=== PATIENT | female | born 1985 | race Two or more races ===

== ENCOUNTER 2018-08-12 18:09 | Inpatient (IN) | payer OTHER ==
[2018-08-12] MEDS ORDERED: methylPREDNISolone NA SUCC 125 MG/2 ML VIAL IVPUSH ONE (18:12)
--- NOTE | 2018-08-12 18:12 | PDOC ---
Rapid Medical Evaluation Time Seen by Provider: 08/12/18 18:11 Medical Evaluation: Allergies Allergy/AdvReac Type Severity Reaction Status Date / Time No Known Allergies Allergy Verified 07/05/15 11:00 08/12/18 18:11 I have performed a brief in-person evaluation of this patient. The patient presents with a chief complaint of: MS exacerbation, sent by Dr. Marie for admission. Pt has rx with further instructions. Pertinent physical exam findings: Alert, oriented, no distress. I have ordered the following: EKG, CXR, labs, Solu-Medrol 250mg IVP. The patient will proceed to the ED for further evaluation. Discharge Disposition - Diagnosis Exacerbation of multiple sclerosis - Referrals - Patient Instructions - Post Discharge Activity
--- NOTE | 2018-08-12 18:47 | PDOC ---
Attending Attestation - Resident Resident Name: JameyAllan carballoel - ED Attending Attestation I have performed the following: I have examined & evaluated the patient, The case was reviewed & discussed with the resident, I agree w/resident's findings & plan, Exceptions are as noted - Medical Decision Making 08/12/18 18:47 I, Dr. Yamila Mckenna, DO, attest that this document has been prepared under my direction and personally reviewed by me in its entirety. I further attest, that it accurately reflects all work, treatment, procedures and medical decision -making performed by me. 08/12/18 19:32 a/p: 33yo female with hx of optic neuritis and MS who follows with Dr. Velasco sent for IV steroids for a MS flair -L eye pain, photophobia -L leg weakness -had recent hospitalization at [place] who 3 days of steroids, but didn't improve -did not have MRI brain at [place] -labs, ekg, steroids ordered by E -will admit to [facility] - PMD in [place] -Consult to Dr. Velasco MRI brain without contrast ordered 08/12/18 19:49 resident discussed the case with [facility] who accepts the patient to serivce <Yamila Mckenna - Last Filed: 08/12/18 19:49> - HPI HPI: 08/12/18 21:42 Patient is a 33 year old female with a significant past medical history of M.S, who presents to the ED with complaints of eye pain that began x2 weeks ago. Patient reports experiencing graudal left eye pain with associated blurred vision that has been constant for 2 weeks. She reports being seen and treated at [facility] but was discharged without her symptoms being relieved. Patient reports coming into the ED for further evaluation after symptoms failed to subside over time. Denies chest pain, Sob. Denies nausea, vomiting. Denies fevers, chills. Denies dysuria, hematuria. Denies constipation, diarrhea. Denies trauma to affected area, loss of consciousness. Denies contact with sick individuals, out of state travelling. Denies any other symptoms. Allergies: None Social history: No smoking. No alcohol. No illicit drugs. Surgical: None PMD: None Neurologist: Dr. Velasco - Physicial Exam PE: 08/12/18 21:42 GENERAL: Awake, alert, and fully oriented, in no acute distress HEAD: No signs of trauma EYES: +No afferent pupillary defect.. PERRLA, EOMI, sclera anicteric, conjunctiva clear ENT: Auricles normal inspection, hearing grossly normal, nares patent, oropharynx clear without exudates. Moist mucosa NECK: Normal ROM, supple, no lymphadenopathy, JVD, or masses LUNGS: Breath sounds equal, clear to auscultation bilaterally. No wheezes, and no crackles HEART: Regular rate and rhythm, normal S1 and S2, no murmurs, rubs or gallops ABDOMEN: Soft, nontender, normoactive bowel sounds. No guarding, no rebound. No masses EXTREMITIES: +Left leg weakness. Upper extremity strength 5/5. +Left leg flexion 4/5, plantar 4/ 5, dorsal 4/5 Normal range of motion, no edema. No clubbing or cyanosis. No cords, erythema, or tenderness NEUROLOGICAL: Cranial nerves II through XII grossly intact. Normal speech, normal gait SKIN: Warm, Dry, normal turgor, no rashes or lesions noted. <Lonnie Bowling - Last Filed: 08/12/18 21:43>
[2018-08-12] MEDS ORDERED: methylPREDNISolone NA SUCC 125 MG/2 ML VIAL ONE (18:53)
[2018-08-12 18:58] LABS: BASO % 0.2 % (0-2.0); HEMATOCRIT 37.3 % (32.4-45.2); HEMOGLOBIN 12.8 GM/dL (10.7-15.3); MCH 31.1 pg (25.7-33.7); MCHC 34.2 g/dl (32.0-36.0); MEAN CELL VOLUME 91.1 fl (80-96); MEAN PLT VOLUME 9.6 fl (7.5-11.1); MONO % 5.2 % (3.8-10.2); NEUT % 77.6 % (42.8-82.8); PLATELET COUNT 247 K/MM3 (134-434); RDW 12.8 % (11.6-15.6)
--- NOTE | 2018-08-12 19:20 | PDOC ---
History of Present Illness - General Chief Complaint: Eye Problem Stated Complaint: PCP ADMIT Time Seen by Provider: 08/12/18 18:11 History Source: Patient Exam Limitations: No Limitations - History of Present Illness Initial Comments: Patient is a 33 y/o F w/ PMHx RRMS on Avonex p/w eye pain and blurry vision x 2 weeks. Per patient was seen and treated at [facility] but was discharged without resolution of symptoms. Her regular neurologist is Dr. Velasco. Continues to complain of eye pain and blurry vision as well as slightly worsening weakness of the LLE. ROS otherwise negative. 08/12/18 19:15 Past History - Travel Traveled outside of the country in the last 30 days: No Close contact w/someone who was outside of country & ill: No - Past Medical History Allergies/Adverse Reactions: Allergies Allergy/AdvReac Type Severity Reaction Status Date / Time No Known Allergies Allergy Verified 08/12/18 19:07 COPD: No Dialysis: No Liver Disease: No Other medical history: MS - Immunization History Immunization Up to Date: No - Suicide/Smoking/Psychosocial Hx Smoking History: Never smoked Have you smoked in the past 12 months: No Information on smoking cessation initiated: No Hx Alcohol Use: No Drug/Substance Use Hx: No Substance Use Type: Alcohol Review of Systems - Review of Systems Comments:: As per HPI 08/12/18 19:17 *Physical Exam - Vital Signs Last Vital Signs Temp Pulse Resp BP Pulse Ox 98.4 F 77 18 137/80 100 08/12/18 18:12 08/12/18 18:12 08/12/18 18:12 08/12/18 18:12 08/12/18 18:12 - Physical Exam Comments: Gen: A&Ox3, NAD HEENT: EOMI, +APD on left, MMM CV: RRR no m/r/g Resp: CTA b/l Abd: +bs, soft, NT, ND Extremities: 2+ pulses, wwp, no edema Neuro: CN II as per HEENT, CN III-XII intact b/l, motor strength 5-/5 in LLE otherwise 5/5 throughout, FtN intact b/l, no spasticity, no sensory deficit Psych: normal mood, normal affect Skin: warm, dry, normal turgor 08/12/18 19:17 Moderate Sedation - Procedure Monitoring Vital Signs: Procedure Monitoring Vital Signs Temperature 98.4 F 08/12/18 18:12 Pulse Rate 77 08/12/18 18:12 Respiratory Rate 18 08/12/18 18:12 Blood Pressure 137/80 08/12/18 18:12 O2 Sat by Pulse Oximetry (%) 100 08/12/18 18:12 ED Treatment Course - LABORATORY CBC & Chemistry Diagram: 08/12/18 18:40 08/12/18 18:40 - ADDITIONAL ORDERS Additional order review: Laboratory Results 08/12/18 18:40 Serum , Qual Negative 08/12/18 18:40 RBC 4.10 MCV 91.1 MCHC 34.2 RDW 12.8 MPV 9.6 Neutrophils % 77.6 Lymphocytes % 17.0 Monocytes % 5.2 Eosinophils % 0.0 Basophils % 0.2 - RADIOLOGY Radiology Studies Ordered: Category Date Time Status BRAIN MRI W&W/O CONTRAST [MRI] Stat MRI 08/12/18 19:06 Ordered - Medications Given in the ED: ED Medications Discontinued Medications Generic Name Dose Route Start Last Admin Trade Name Freq PRN Reason Stop Dose Admin Methylprednisolone Sodium Succinate 250 mg 08/12/18 18:12 08/12/18 19:06 Solu-Medrol - IVPUSH 08/12/18 18:13 250 mg ONCE ONE Administration Medical Decision Making - Medical Decision Making Patient p/w acute exacerbation of MS. Dr. Velasco is aware. Consult placed. Solumedrol 250q6h per neuro instructions. Brain MRI ordered. 08/12/18 19:20 *DC/Admit/Observation/Transfer Diagnosis at time of Disposition: Exacerbation of multiple sclerosis - Discharge Dispostion Condition at time of disposition: Stable Decision to Admit order: Yes - Referrals - Patient Instructions - Post Discharge Activity
[2018-08-12 19:31] LABS: ALBUMIN 3.5 g/dl (3.4-5.0); ALK PHOS 49 U/L (45-117); ANION GAP 7 MMOL/L (8-16); BILIRUBIN,TOTAL 0.4 mg/dL (0.2-1); BLOOD UREA NITROGEN 22 mg/dL (7-18); CALCIUM 8.5 mg/dL (8.5-10.1); CHLORIDE 103 mmol/L (98-107); CO2 27 mmol/L (21-32); CREATININE 0.8 mg/dL (0.55-1.3); GLUCOSE,RANDOM 134 mg/dL (74-106); SGOT/AST 41 U/L (15-37); SGPT/ALT 33 U/L (13-61); SODIUM 137 mmol/L (136-145); TOT PROT 7.5 g/dl (6.4-8.2)
[2018-08-12] MEDS ORDERED: PANTOPRAZOLE SODIUM 40 MG VIAL ONE (19:58)
[2018-08-12] MEDS: PANTOPRAZOLE SODIUM 40 MG VIAL IVPUSH SCH (20:04)
--- NOTE | 2018-08-12 21:03 | HP ---
CHIEF COMPLAINT: Blurred vision, LLE weakness PCP: HISTORY OF PRESENT ILLNESS: The patient is a 33 yo f w/ PMH MS who comes into the ED c/o a 2 week hx of blurred vision, headaches and LLE weakness. The patient sought medical attention at [facility] and was admitted there for treatment of these complaints. Per the patient, she was treated with 3 doses (amount unknown) of IV steroids and discharged home with a large amount of PO steroids and instructed to follow up. The patient's symptoms had not resolved on discharge. Today, the patient saw her neurologist, Dr. Velasco, who referred her for admission upon hearing that her symptoms were not improving. Patient also complains of headaches 2/2 to the blurred vision as well as LLE weakness for the same period of time. Patient denies loss of sensation or paralysis. Patient denies slurred speech or facial droop. Patient denies Chest pain, SOB, fevers, chills, dysuria. ER course was notable for: (1) Dr. Velasco consulted from the ER; suggests 250mg medrol Q6h and 40mg IV protonix daily as well as MRI of brain, and cervical, thoracic and lumbar spine w/ w/o contrast. (2) Labs unremarkable Recent Travel: none PAST MEDICAL HISTORY: see hpi PAST SURGICAL HISTORY: none Social History: Smoking: never Alcohol: denies Drugs: denies Family History: Allergies No Known Allergies Allergy (Verified 08/12/18 19:07) HOME MEDICATIONS: REVIEW OF SYSTEMS CONSTITUTIONAL: Absent: fever, chills, diaphoresis, generalized weakness, malaise, loss of appetite, weight change HEENT: Absent: rhinorrhea, nasal congestion, throat pain, throat swelling, difficulty swallowing, mouth swelling, ear pain CARDIOVASCULAR: Absent: chest pain, syncope, palpitations, irregular heart rate, lightheadedness , peripheral edema RESPIRATORY: Absent: cough, shortness of breath, dyspnea with exertion, orthopnea, wheezing, stridor, hemoptysis GASTROINTESTINAL: Absent: abdominal pain, abdominal distension, nausea, vomiting, diarrhea, constipation, melena, hematochezia GENITOURINARY: Absent: dysuria, frequency, urgency, hesitancy, hematuria, flank pain, genital pain MUSCULOSKELETAL: Absent: myalgia, arthralgia, joint swelling, back pain, neck pain SKIN: Absent: rash, itching, pallor HEMATOLOGIC/IMMUNOLOGIC: Absent: easy bleeding, easy bruising, lymphadenopathy, frequent infections ENDOCRINE: Absent: unexplained weight gain, unexplained weight loss, heat intolerance, cold intolerance NEUROLOGIC: Absent: dizziness, unsteady gait, seizure, mental status changes, bladder or bowel incontinence PSYCHIATRIC: Absent: anxiety, depression, suicidal or homicidal ideation, hallucinations. PHYSICAL EXAMINATION Vital Signs - 24 hr 08/12/18 18:12 Temperature 98.4 F Pulse Rate 77 Respiratory 18 Rate Blood Pressure 137/80 O2 Sat by Pulse 100 Oximetry (%) GENERAL: Awake, alert, and fully oriented, in no acute distress. HEAD: Normal with no signs of trauma. EYES: Pupils equal, round. Left pupil sluggish in response to light. Right pupil with brisk response to light. Consensual pupillary reaction intact. extraocular movements intact. Patient endorses left eye pain upon asked to look up and to the right. sclera anicteric, conjunctiva clear. No lid lag. LUNGS: Breath sounds equal, clear to auscultation bilaterally. No wheezes, and no crackles. No accessory muscle use. HEART: Regular rate and rhythm, normal S1 and S2 without murmur, rub or gallop. ABDOMEN: Soft, nontender, not distended, normoactive bowel sounds, no guarding, no rebound, no masses. No hepatomegaly or splenomegaly. LOWER EXTREMITIES: 2+ pulses, warm, well-perfused. No calf tenderness. No peripheral edema. NEUROLOGICAL: Cranial nerves II-X intact except for eyes noted above. Normal speech. Strength 5/5 in both upper extremities, 5/5 in the right lower extremity , 4/5 in left lower extremity. SKIN: Warm, dry, normal turgor, no rashes or lesions noted, normal capillary refill. Laboratory Results - last 24 hr 08/12/18 08/12/18 08/12/18 18:40 18:40 18:40 WBC 11.0 H RBC 4.10 Hgb 12.8 Hct 37.3 MCV 91.1 MCH 31.1 MCHC 34.2 RDW 12.8 Plt Count 247 MPV 9.6 Absolute Neuts (auto) 8.5 H Neutrophils % 77.6 Lymphocytes % 17.0 Monocytes % 5.2 Eosinophils % 0.0 Basophils % 0.2 Nucleated RBC % 0 Sodium 137 Potassium 5.0 Chloride 103 Carbon Dioxide 27 Anion Gap 7 L BUN 22 H Creatinine 0.8 Creat Clearance w eGFR > 60 Random Glucose 134 H Calcium 8.5 Total Bilirubin 0.4 AST 41 H ALT 33 Alkaline Phosphatase 49 Total Protein 7.5 Albumin 3.5 Serum , Qual Negative ASSESSMENT/PLAN: The patient is a 33 yo f w/ PMH MS who comes into the ED c/o persistent blurred vision, headache and LLE weakness. #blurred vision and weakness 2/2 to acute exacerbation of MS -Dr. Velasco consulted from ER; suggested 250mg medrol IV, 40 mg protonix IV daily and MRI of the brain and spine -will treat patient according to neurology's instructions #FEN -no fluids indicated -lytes wnl -regular diet #Prophy -patient young and ambulatory -SCDs, early ambulation #Dispo -admit inpatient med-surg Visit type - Emergency Visit Emergency Visit: Yes ED Registration Date: 08/12/18 Care time: The patient presented to the Emergency Department on the above date and was hospitalized for further evaluation of their emergent condition. - New Patient This patient is new to me today: Yes Date on this admission: 08/12/18 - Critical Care Critical Care patient: No
--- NOTE | 2018-08-12 22:41 | PN ---
Teaching Attending Note Name of Resident: Jose Francisco Gutierrez ATTENDING PHYSICIAN STATEMENT I saw and evaluated the patient. I reviewed the resident's note and discussed the case with the resident. I agree with the resident's findings and plan as documented. SUBJECTIVE: This is a 33 year old woman with a history of MS who comes to the ED complaining of blurred vision, headaches, and left leg weakness x 2 weeks. She also reports pain with some movements of her left eye. She was recently admitted at [facility] and treated with IV steroids. She was discharged home on oral steroids. She says that she was not doing better at discharge. Today, Dr. Velasco advised her to be admitted since her symptoms still had not improved. OBJECTIVE: Vital Signs Period Temp Pulse Resp BP Sys/Salazar Pulse Ox Last 24 Hr 98.4 F 77 18 137/80 100 HEART: S1S2, RRR LUNGS: Clear ABDOMEN: Soft, non-tender, non-distended, normal BS EXTREMITIES: No edema NEUROLOGICAL: Alert, oriented. Pupils equal, round and reactive but left sluggish compared to right. Normal speech. Sensation intact. Strength 5/5 in LUE /RUE/RLE and 4/5 in LLE. DTRs symmetric. Laboratory Tests 08/12/18 08/12/18 08/12/18 18:40 18:40 18:40 WBC 11.0 H RBC 4.10 Hgb 12.8 Hct 37.3 MCV 91.1 MCH 31.1 MCHC 34.2 RDW 12.8 Plt Count 247 MPV 9.6 Absolute Neuts (auto) 8.5 H Neutrophils % 77.6 Lymphocytes % 17.0 Monocytes % 5.2 Eosinophils % 0.0 Basophils % 0.2 Nucleated RBC % 0 Sodium 137 Potassium 5.0 Chloride 103 Carbon Dioxide 27 Anion Gap 7 L BUN 22 H Creatinine 0.8 Creat Clearance w eGFR > 60 Random Glucose 134 H Calcium 8.5 Total Bilirubin 0.4 AST 41 H ALT 33 Alkaline Phosphatase 49 Total Protein 7.5 Albumin 3.5 Serum , Qual Negative Home Medications Medication Instructions Recorded NK [No Known Home Medication] 08/12/18 ASSESSMENT AND PLAN: This is a 33 year old woman with a history of MS who presented to the ED with blurred vision, headaches, and left leg weakness x 2 weeks. 1. Acute exacerbation of multiple sclerosis with optic neuritis - SoluMedrol 250 mg IV q6h - MRI of brain, C-spine - Neurology consult 2. Leukocytosis - Likely steroid-induced - No evidence of infection
[2018-08-13] MEDS: ACETAMINOPHEN 325 MG TABLET (FP) PO PRN ×2 (00:03→09:47)
[2018-08-13] MEDS ORDERED: HYDROCORTISONE SOD SUCCINATE 250 MG/2 ML ML ONE (00:05)
[2018-08-13] MEDS: methylPREDNISolone NA SUCC 125 MG/2 ML VIAL IVPUSH SCH ×3 (00:19→13:10)
[2018-08-13] MEDS ORDERED: KETOROLAC TROMETHAMINE 15 MG/ML VIAL IVPUSH ONE (04:19)
[2018-08-13] MEDS ORDERED: KETOROLAC TROMETHAMINE 15 MG/ML VIAL ONE (05:31)
[2018-08-13 05:49] LABS: HEMATOCRIT 37.5 % (32.4-45.2); HEMOGLOBIN 12.8 GM/dL (10.7-15.3); MCH 31.3 pg (25.7-33.7); MEAN CELL VOLUME 92.2 fl (80-96); MEAN PLT VOLUME 9.1 fl (7.5-11.1); PLATELET COUNT 208 K/MM3 (134-434); RBC 4.07 M/mm3 (3.60-5.2); RDW 12.4 % (11.6-15.6); WHITE BLOOD COUNT 8.6 K/mm3 (4.0-10.0)
[2018-08-13 06:12] LABS: ANION GAP 7 MMOL/L (8-16); BLOOD UREA NITROGEN 21 mg/dL (7-18); CALCIUM 8.3 mg/dL (8.5-10.1); CHLORIDE 104 mmol/L (98-107); CO2 27 mmol/L (21-32); CREATININE 0.8 mg/dL (0.55-1.3); GLUCOSE,RANDOM 128 mg/dL (74-106); MAGNESIUM 1.9 mg/dL (1.8-2.4); PHOSPHOROUS 3.2 mg/dL (2.5-4.9); POTASSIUM 4.7 mmol/L (3.5-5.1); SODIUM 138 mmol/L (136-145)
[2018-08-13 06:15] LABS: INR 0.98 (0.83-1.09); PROTHROMBIN TIME (PATIENT) 11.6 SEC (9.7-13.0)
[2018-08-13 06:18] LABS: ACTIVATED PTT 28.3 SECONDS (25.2-36.5)
[2018-08-13] MEDS ORDERED: methylPREDNISolone NA SUCC 125 MG/2 ML VIAL ONE ×2 (08:01→13:10)
[2018-08-13] MEDS ORDERED: MAGNESIUM SULF 50% (8.12 MEQ/2 ML-1 GM VIAL) IVPB ONE (08:15)
[2018-08-13] MEDS ORDERED: MAGNESIUM 1GM/D5W - 1 GM/100 ML IVPB IVPB ONE (08:24)
--- NOTE | 2018-08-13 09:22 | CONSULT ---
Consult - text type - Consultation Consultation Note: Neurology CHIEF COMPLAINT: Blurred vision, LLE weakness HISTORY OF PRESENT ILLNESS: The patient is a 33 yo f w/ PMH MS who comes into the ED c/o a 2 week hx of blurred vision, headaches and LLE weakness. The patient sought medical attention at [facility] and was admitted there for treatment of these complaints. She was treated with 1g of IV solumedrol for three days and discharged home with a large amount of PO steroids and instructed to follow up. The patient's symptoms had not resolved on discharge and therefore saw me in the office on and referred her for admission upon hearing that her symptoms persisted. Imaging was not done at [facility]. Patient also complains of headaches 2/2 to the blurred vision as well as LLE weakness along with radicular pain. Patient denies loss of sensation or paralysis. Patient denies slurred speech or facial droop. Completed MRI brain and C spine overnight, reviewed, awaiting official read. Recent Travel: none PAST MEDICAL HISTORY: see hpi PAST SURGICAL HISTORY: none Social History: Smoking: never Alcohol: denies Drugs: denies Family History: Allergies No Known Allergies Allergy (Verified 08/12/18 19:07) HOME MEDICATIONS: REVIEW OF SYSTEMS CONSTITUTIONAL: Absent: fever, chills, diaphoresis, generalized weakness, malaise, loss of appetite, weight change HEENT: Absent: rhinorrhea, nasal congestion, throat pain, throat swelling, difficulty swallowing, mouth swelling, ear pain CARDIOVASCULAR: Absent: chest pain, syncope, palpitations, irregular heart rate, lightheadedness , peripheral edema RESPIRATORY: Absent: cough, shortness of breath, dyspnea with exertion, orthopnea, wheezing, stridor, hemoptysis GASTROINTESTINAL: Absent: abdominal pain, abdominal distension, nausea, vomiting, diarrhea, constipation, melena, hematochezia GENITOURINARY: Absent: dysuria, frequency, urgency, hesitancy, hematuria, flank pain, genital pain MUSCULOSKELETAL: Absent: myalgia, arthralgia, joint swelling, back pain, neck pain SKIN: Absent: rash, itching, pallor HEMATOLOGIC/IMMUNOLOGIC: Absent: easy bleeding, easy bruising, lymphadenopathy, frequent infections ENDOCRINE: Absent: unexplained weight gain, unexplained weight loss, heat intolerance, cold intolerance NEUROLOGIC: Absent: dizziness, unsteady gait, seizure, mental status changes, bladder or bowel incontinence PSYCHIATRIC: Absent: anxiety, depression, suicidal or homicidal ideation, hallucinations. PHYSICAL EXAMINATION Vital Signs Period Temp Pulse Resp BP Sys/Salazar Pulse Ox Last 24 Hr 98.1 F-98.4 F 58-78 18-18 128-137/67-92 99-100 GENERAL: Awake, alert, and fully oriented, in no acute distress. HEAD: Normal with no signs of trauma. EYES: Pupils equal, round. Left pupil sluggish in response to light. Right pupil with brisk response to light. Consensual pupillary reaction intact. extraocular movements intact. Patient endorses left eye pain upon asked to look up and to the right. sclera anicteric, conjunctiva clear. No lid lag. LUNGS: Breath sounds equal, clear to auscultation bilaterally. No wheezes, and no crackles. No accessory muscle use. HEART: Regular rate and rhythm, normal S1 and S2 without murmur, rub or gallop. ABDOMEN: Soft, nontender, not distended, normoactive bowel sounds, no guarding, no rebound, no masses. No hepatomegaly or splenomegaly. LOWER EXTREMITIES: 2+ pulses, warm, well-perfused. No calf tenderness. No peripheral edema. NEUROLOGICAL: Cranial nerves II-X intact except for eyes noted above. Normal speech. Strength 5/5 in both upper extremities, 5/5 in the right lower extremity , 5-/5 in left lower extremity. SKIN: Warm, dry, normal turgor, no rashes or lesions noted, normal capillary refill. Laboratory Results - last 24 hr 08/12/18 08/12/18 08/12/18 18:40 18:40 18:40 WBC 11.0 H RBC 4.10 Hgb 12.8 Hct 37.3 MCV 91.1 MCH 31.1 MCHC 34.2 RDW 12.8 Plt Count 247 MPV 9.6 Absolute Neuts (auto) 8.5 H Neutrophils % 77.6 Lymphocytes % 17.0 Monocytes % 5.2 Eosinophils % 0.0 Basophils % 0.2 Nucleated RBC % 0 Sodium 137 Potassium 5.0 Chloride 103 Carbon Dioxide 27 Anion Gap 7 L BUN 22 H Creatinine 0.8 Creat Clearance w eGFR > 60 Random Glucose 134 H Calcium 8.5 Total Bilirubin 0.4 AST 41 H ALT 33 Alkaline Phosphatase 49 Total Protein 7.5 Albumin 3.5 Serum , Qual Negative ASSESSMENT/PLAN: 33 yo f w/ PMH MS who comes into the ED c/o a 2 week hx of blurred vision, headaches and LLE weakness. The patient sought medical attention at [facility] and was admitted there for treatment of these complaints. She was treated with 1g of IV solumedrol for three days and discharged home with a large amount of PO steroids and instructed to follow up. The patient's symptoms had not resolved on discharge and therefore saw me in the office on 08/13 and referred her for admission upon hearing that her symptoms persisted. Imaging was not done at [facility]. Patient also complains of headaches 2/2 to the blurred vision as well as LLE weakness along with radicular pain. Patient denies loss of sensation or paralysis. Patient denies slurred speech or facial droop. Completed MRI brain and C spine overnight, reviewed, awaiting official read. Follow up official read. She can continue solumedrol [id number], would completed a 3 day course on Thursday night. If at that point she is improved, can consider discharge. However, if continued visual impairment and/or LLE weakness , please continue for 5 day course (completed Thursday evening). Awaiting MRI T and L spine. PPI, RISS with steroids. Physical therapy to assist with gait and ambulating. Fioricet as needed for headache. Can start duloxetine 20mg for symptoms of lumbar radiculopathy for now. Can increase to 30mg if this is not effective over the weekend. Discussed with resident at bedside in detail.
[2018-08-13] MEDS ORDERED: ACETAMINOPHEN 325 MG TABLET (FP) ONE ×2 (09:30)
[2018-08-13] MEDS: PANTOPRAZOLE SODIUM 40 MG VIAL IVPUSH SCH (09:30)
[2018-08-13] MEDS ORDERED: PANTOPRAZOLE SODIUM 40 MG VIAL ONE (09:30)
[2018-08-13] MEDS ORDERED: DULoxetine HCL 30 MG CAPSULE.DR (FP) PO ONE (09:54)
[2018-08-13] MEDS ORDERED: ACETAMINOPHEN/CAFFEINE/BUTALBITAL 1 TAB ONE (09:55)
[2018-08-13] MEDS: ACETAMINOPHEN/CAFFEINE/BUTALBITAL 1 TAB PO PRN (10:29)
[2018-08-13] MEDS: DULoxetine HCL 20 MG CAPSULE.DR (FP) PO SCH (10:30)
[2018-08-13] MEDS: INSULIN SLIDING SCALE (NOVOLOG) 1 VIAL SQ SCH ×3 (11:40→22:11)
--- NOTE | 2018-08-13 14:58 | PN ---
Physical Exam: SUBJECTIVE: Patient seen and examined this AM. She states her blurred vision has slightly improved though not much, and that she is still having weakness in her left side specifically her left leg. OBJECTIVE: Vital Signs Period Temp Pulse Resp BP Sys/Salazar Pulse Ox Last 24 Hr 98.1 F-98.4 F 58-78 18-18 128-148/67-92 99-100 GENERAL: A&O, no acute distress EYES: No visual field loss, though blurred vision in the left eye. Left pupillary afferent defect. EARS, NOSE, THROAT: oropharynx clear without exudates. Moist mucous membranes. LUNGS: CTA b/l, no crackles or wheezes HEART: Regular rate and rhythm, normal S1 and S2 without murmur ABDOMEN: Soft, nontender to palpation, normoactive bowel sounds EXTREMITIES: warm, well-perfused. No peripheral edema. NEUROLOGICAL: Cranial nerves II-XII intact. Normal speech. 4/5 weakness in LLE PSYCHIATRIC: Cooperative. Good eye contact. Appropriate mood and affect. Laboratory Results - last 24 hr 08/12/18 08/12/18 08/12/18 18:40 18:40 18:40 WBC 11.0 H RBC 4.10 Hgb 12.8 Hct 37.3 MCV 91.1 MCH 31.1 MCHC 34.2 RDW 12.8 Plt Count 247 MPV 9.6 Absolute Neuts (auto) 8.5 H Neutrophils % 77.6 Lymphocytes % 17.0 Monocytes % 5.2 Eosinophils % 0.0 Basophils % 0.2 Nucleated RBC % 0 PT with INR INR PTT (Actin FS) Sodium 137 Potassium 5.0 Chloride 103 Carbon Dioxide 27 Anion Gap 7 L BUN 22 H Creatinine 0.8 Creat Clearance w eGFR > 60 POC Glucometer Random Glucose 134 H Calcium 8.5 Phosphorus Magnesium Total Bilirubin 0.4 AST 41 H ALT 33 Alkaline Phosphatase 49 Total Protein 7.5 Albumin 3.5 Serum , Qual Negative 08/13/18 08/13/18 08/13/18 05:20 05:20 05:20 WBC 8.6 RBC 4.07 Hgb 12.8 Hct 37.5 MCV 92.2 MCH 31.3 MCHC 34.0 RDW 12.4 Plt Count 208 MPV 9.1 Absolute Neuts (auto) Neutrophils % Lymphocytes % Monocytes % Eosinophils % Basophils % Nucleated RBC % PT with INR 11.60 INR 0.98 PTT (Actin FS) 28.3 Sodium 138 Potassium 4.7 Chloride 104 Carbon Dioxide 27 Anion Gap 7 L BUN 21 H Creatinine 0.8 Creat Clearance w eGFR > 60 POC Glucometer Random Glucose 128 H Calcium 8.3 L Phosphorus 3.2 Magnesium 1.9 Total Bilirubin AST ALT Alkaline Phosphatase Total Protein Albumin Serum , Qual 08/13/18 11:35 WBC RBC Hgb Hct MCV MCH MCHC RDW Plt Count MPV Absolute Neuts (auto) Neutrophils % Lymphocytes % Monocytes % Eosinophils % Basophils % Nucleated RBC % PT with INR INR PTT (Actin FS) Sodium Potassium Chloride Carbon Dioxide Anion Gap BUN Creatinine Creat Clearance w eGFR POC Glucometer 102.52504 Random Glucose Calcium Phosphorus Magnesium Total Bilirubin AST ALT Alkaline Phosphatase Total Protein Albumin Serum , Qual Active Medications Generic Name Dose Route Start Last Admin Trade Name Freq PRN Reason Stop Dose Admin Acetaminophen 650 mg 08/12/18 23:49 08/13/18 09:47 Tylenol - PO 650 mg Q6H PRN Administration PAIN LEVEL 1-5 Acetaminophen/Butalbital/Caffeine 1 tablet 08/13/18 09:27 08/13/18 10:29 Fioricet - PO 1 tablet DAILY PRN Administration HEADACHE Duloxetine HCl 20 mg 08/13/18 10:00 08/13/18 10:30 Cymbalta - PO 20 mg DAILY CAMI Administration Insulin Aspart 1 vial 08/13/18 11:00 08/13/18 11:40 Novolog Vial Sliding Scale - SQ Not Given ACHS [facility]I Protocol Methylprednisolone Sodium Succinate 250 mg 08/13/18 01:00 08/13/18 13:10 Solu-Medrol - IVPUSH 250 mg Q6H CAMI Administration Pantoprazole Sodium 40 mg 08/12/18 19:45 08/13/18 09:30 Protonix Iv IVPUSH 40 mg DAILY CAMI Administration ASSESSMENT/PLAN: 33 yo f w/ PMH MS who comes into the ED c/o a 2 week hx of blurred vision, headaches and LLE weakness. Acute Exacerbation of Multiple Sclerosis with Optic Neuritis -Neurology consult appreciated and case discussed -SoluMedrol 250 mg IV Q6 -BGMs ACHS with Insulin sliding scale for glycemic control due to high dose steroids -To receive 3 days of steroid and reevaluate, can d/c Thursday if resolved, if not continue until Thursday -Can receive Fioricet PRN for Headache Back and left leg pain, likely Lumbar radiculopathy -MRI lumbar spine pending -Cymbalta 20 mg PO Daily, can increase to 30 as per neurology if ineffective DVT Prophylaxis -Lovenox 40 mg SQ Daily FEN -Fluids: none -Electrolytes: No electrolyte abnormalities, BMP in AM -Nutrition: Regular Diet Disposition Med/Surg Visit type - Emergency Visit Emergency Visit: Yes ED Registration Date: 08/13/18 Care time: The patient presented to the Emergency Department on the above date and was hospitalized for further evaluation of their emergent condition. - New Patient This patient is new to me today: Yes Date on this admission: 08/13/18 - Critical Care Critical Care patient: No
--- NOTE | 2018-08-13 17:26 | PN ---
Teaching Attending Note Name of Resident: Nolberto Diaz ATTENDING PHYSICIAN STATEMENT I saw and evaluated the patient. I reviewed the resident's note and discussed the case with the resident. I agree with the resident's findings and plan as documented. SUBJECTIVE: Feels slightly improved. Still complains of some blurring of vision and pain/weaknes LLE. Headache improving. OBJECTIVE: Afebrile, Hemodynamically Stable. Last Vital Signs Temp Pulse Resp BP Pulse Ox 97.9 F 78 20 148/92 99 08/13/18 14:35 08/13/18 14:35 08/13/18 14:35 08/13/18 14:35 08/13/18 09:48 HEART: S1S2, RRR LUNGS: Clear to auscultation - no crackles/wheeze. ABDOMEN: Soft, mild epigastric tenderness - no guarding or rebound. EXTREMITIES: No edema. No calf tenderness. NEUROLOGICAL: Alert, oriented. Normal speech. Sensation intact. Strength 5/5 in LUE/RUE/RLE and 4/5 in LLE. DTRs symmetric. Laboratory Results - last 24 hr 08/12/18 08/12/18 08/12/18 18:40 18:40 18:40 WBC 11.0 H RBC 4.10 Hgb 12.8 Hct 37.3 MCV 91.1 MCH 31.1 MCHC 34.2 RDW 12.8 Plt Count 247 MPV 9.6 Absolute Neuts (auto) 8.5 H Neutrophils % 77.6 Lymphocytes % 17.0 Monocytes % 5.2 Eosinophils % 0.0 Basophils % 0.2 Nucleated RBC % 0 PT with INR INR PTT (Actin FS) Sodium 137 Potassium 5.0 Chloride 103 Carbon Dioxide 27 Anion Gap 7 L BUN 22 H Creatinine 0.8 Creat Clearance w eGFR > 60 POC Glucometer Random Glucose 134 H Calcium 8.5 Phosphorus Magnesium Total Bilirubin 0.4 AST 41 H ALT 33 Alkaline Phosphatase 49 Total Protein 7.5 Albumin 3.5 Serum , Qual Negative 08/13/18 08/13/18 08/13/18 05:20 05:20 05:20 WBC 8.6 RBC 4.07 Hgb 12.8 Hct 37.5 MCV 92.2 MCH 31.3 MCHC 34.0 RDW 12.4 Plt Count 208 MPV 9.1 Absolute Neuts (auto) Neutrophils % Lymphocytes % Monocytes % Eosinophils % Basophils % Nucleated RBC % PT with INR 11.60 INR 0.98 PTT (Actin FS) 28.3 Sodium 138 Potassium 4.7 Chloride 104 Carbon Dioxide 27 Anion Gap 7 L BUN 21 H Creatinine 0.8 Creat Clearance w eGFR > 60 POC Glucometer Random Glucose 128 H Calcium 8.3 L Phosphorus 3.2 Magnesium 1.9 Total Bilirubin AST ALT Alkaline Phosphatase Total Protein Albumin Serum , Qual 08/13/18 11:35 WBC RBC Hgb Hct MCV MCH MCHC RDW Plt Count MPV Absolute Neuts (auto) Neutrophils % Lymphocytes % Monocytes % Eosinophils % Basophils % Nucleated RBC % PT with INR INR PTT (Actin FS) Sodium Potassium Chloride Carbon Dioxide Anion Gap BUN Creatinine Creat Clearance w eGFR POC Glucometer 102.42100 Random Glucose Calcium Phosphorus Magnesium Total Bilirubin AST ALT Alkaline Phosphatase Total Protein Albumin Serum , Qual Current Medications Generic Name Dose Route Start Last Admin Trade Name Freq PRN Reason Stop Dose Admin Acetaminophen 650 mg 08/12/18 23:49 08/13/18 09:47 Tylenol - PO 650 mg Q6H PRN Administration PAIN LEVEL 1-5 Acetaminophen/Butalbital/Caffeine 1 tablet 08/13/18 09:27 08/13/18 10:29 Fioricet - PO 1 tablet DAILY PRN Administration HEADACHE Duloxetine HCl 20 mg 08/13/18 10:00 08/13/18 10:30 Cymbalta - PO 20 mg DAILY CAMI Administration Insulin Aspart 1 vial 08/13/18 11:00 08/13/18 11:40 Novolog Vial Sliding Scale - SQ Not Given ACHS [facility] Protocol Methylprednisolone Sodium Succinate 250 mg 08/13/18 01:00 08/13/18 13:10 Solu-Medrol - IVPUSH 250 mg Q6H CAMI Administration Pantoprazole Sodium 40 mg 08/12/18 19:45 08/13/18 09:30 Protonix Iv IVPUSH 40 mg DAILY CAMI Administration ASSESSMENT AND PLAN: 33 year old female with a history of MS who presented to the ED with blurred vision, headaches, and left leg weakness for he past 2 weeks. She was recently admitted at [facility] 1 week ago and treated with IV steroids for 3 days then discharged on oral steroid. She is currently referred to the ED from Neurology office due to persistence of symptoms. 1. Acute exacerbation of multiple sclerosis with optic neuritis Started on SoluMedrol 250 mg IV q6h MRI of brain, C/T/L - spine: Multiple areas of demyelinating lesions including L pontine lesion supratentorial lesion, intermedullary plaques C4/5/6/7 Neurology, Dr. Velasco, evaluated - to continue IV Solumedrol for 3-5 days, start Cymbalta, and Fioricet for headache. 2. Leukocytosis Likely steroid induced, resolved. GI Px - Protonix DVT Px - Heparin SQ
[2018-08-13 18:50] VITALS: BMI 23.3
[2018-08-13] MEDS ORDERED: MELATONIN 5 MG TABLETS PO ONE (20:58)
[2018-08-13] MEDS: methylPREDNISolone NA SUCC 125 MG/2 ML VIAL IVPB SCH (21:59)
[2018-08-13] MEDS: HEPARIN NA (PORCINE) 5,000 UNITS/ML 1ML VIAL SQ SCH (23:08)
[2018-08-14] MEDS: ACETAMINOPHEN 325 MG TABLET (FP) PO PRN ×2 (00:45→14:58)
[2018-08-14] MEDS: methylPREDNISolone NA SUCC 125 MG/2 ML VIAL IVPB SCH ×4 (03:09→21:04)
[2018-08-14] MEDS: ACETAMINOPHEN/CAFFEINE/BUTALBITAL 1 TAB PO PRN (06:41)
[2018-08-14] MEDS: HEPARIN NA (PORCINE) 5,000 UNITS/ML 1ML VIAL SQ SCH ×3 (06:42→21:04)
[2018-08-14] MEDS: INSULIN SLIDING SCALE (NOVOLOG) 1 VIAL SQ SCH ×4 (06:45→23:14)
[2018-08-14 07:43] LABS: HEMATOCRIT 38.6 % (32.4-45.2); HEMOGLOBIN 13.2 GM/dL (10.7-15.3); MCH 31.4 pg (25.7-33.7); MCHC 34.2 g/dl (32.0-36.0); MEAN CELL VOLUME 91.8 fl (80-96); MEAN PLT VOLUME 9.6 fl (7.5-11.1); PLATELET COUNT 261 K/MM3 (134-434); RDW 12.4 % (11.6-15.6); WHITE BLOOD COUNT 13.6 K/mm3 (4.0-10.0)
[2018-08-14 07:55] LABS: ANION GAP 7 MMOL/L (8-16); BLOOD UREA NITROGEN 18 mg/dL (7-18); CALCIUM 8.3 mg/dL (8.5-10.1); CHLORIDE 100 mmol/L (98-107); CO2 28 mmol/L (21-32); CREATININE 0.8 mg/dL (0.55-1.3); GLUCOSE,RANDOM 120 mg/dL (74-106); MAGNESIUM 2.1 mg/dL (1.8-2.4); PHOSPHOROUS 2.9 mg/dL (2.5-4.9); POTASSIUM 4.3 mmol/L (3.5-5.1); SODIUM 135 mmol/L (136-145)
--- NOTE | 2018-08-14 10:14 | PN ---
Teaching Attending Note Name of Resident: Nolberto Diaz ATTENDING PHYSICIAN STATEMENT I saw and evaluated the patient. I reviewed the resident's note and discussed the case with the resident. I agree with the resident's findings and plan as documented. SUBJECTIVE: Feels some improvement in blurred vision but still has pain Left eye and LLE. Headache improving. OBJECTIVE: Afebrile, Hemodynamically Stable. Last Vital Signs Temp Pulse Resp BP Pulse Ox 98.2 F 62 20 150/92 99 08/14/18 06:00 08/14/18 06:00 08/14/18 06:00 08/14/18 06:00 08/14/18 03:00 HEART: S1, S2, RRR LUNGS: Clear to auscultation - no crackles/wheeze. ABDOMEN: Soft, non-tender - no guarding or rebound. Bowel Sounds normal. EXTREMITIES: No edema. No calf tenderness. NEUROLOGICAL: Alert, oriented. Normal speech. Sensation intact. Strength 5/5 in LUE/RUE/RLE/LLE. DTRs symmetric. Laboratory Results - last 24 hr 08/13/18 08/13/18 08/13/18 11:35 18:17 22:08 WBC RBC Hgb Hct MCV MCH MCHC RDW Plt Count MPV Sodium Potassium Chloride Carbon Dioxide Anion Gap BUN Creatinine Creat Clearance w eGFR POC Glucometer 102.20337 162 140 Random Glucose Calcium Phosphorus Magnesium 08/14/18 08/14/18 08/14/18 06:35 06:35 06:44 WBC 13.6 H RBC 4.20 Hgb 13.2 Hct 38.6 MCV 91.8 MCH 31.4 MCHC 34.2 RDW 12.4 Plt Count 261 D MPV 9.6 Sodium 135 L Potassium 4.3 Chloride 100 Carbon Dioxide 28 Anion Gap 7 L BUN 18 Creatinine 0.8 Creat Clearance w eGFR > 60 POC Glucometer 124 Random Glucose 120 H Calcium 8.3 L Phosphorus 2.9 Magnesium 2.1 Current Medications Generic Name Dose Route Start Last Admin Trade Name Freq PRN Reason Stop Dose Admin Acetaminophen 650 mg 08/12/18 23:49 08/14/18 00:45 Tylenol - PO 650 mg Q6H PRN Administration PAIN LEVEL 1-5 Acetaminophen/Butalbital/Caffeine 1 tablet 08/13/18 09:27 08/14/18 06:41 Fioricet - PO 1 tablet DAILY PRN Administration HEADACHE Duloxetine HCl 20 mg 08/13/18 10:00 08/13/18 10:30 Cymbalta - PO 20 mg DAILY CAMI Administration Heparin Sodium (Porcine) 5,000 unit 08/13/18 22:00 08/14/18 06:42 Heparin - SQ 5,000 unit TID CAMI Administration Insulin Aspart 1 vial 08/13/18 11:00 08/14/18 06:45 Novolog Vial Sliding Scale - SQ Not Given ACHS [facility] Protocol Methylprednisolone Sodium Succinate 250 mg 08/13/18 21:00 08/14/18 03:09 Solu-Medrol - IVPB 250 mg Q6H-IV CAMI Administration Pantoprazole Sodium 40 mg 08/14/18 10:00 Protonix - PO DAILY CAMI ASSESSMENT AND PLAN: 33 year old female with a history of MS who presented to the ED with blurred vision, headaches, and left leg pain/weakness for he past 2 weeks. She was recently admitted at [facility] 1 week ago and treated with IV steroids for 3 days then discharged on oral steroid. She is currently referred to the ED from Neurologist's office due to persistence of symptoms. 1. Acute exacerbation of multiple sclerosis with optic neuritis and LLE pain/ weakness Continue SoluMedrol 250 mg IV q6h MRI of brain, C Spine - spine: Multiple areas of demyelinating lesions including L pontine lesion supratentorial lesion, intermedullary plaques C4/5/6/ 7 MRI T/L spine pending to exclude Musculoskeletal cause for LLE symptoms. Neurology, Dr. Velasco, evaluated - to continue IV Solumedrol for 3-5 days, started on Cymbalta, and Fioricet for headache. 2. Leukocytosis - steroid induced. GI Px - Protonix DVT Px - Heparin SQ
[2018-08-14] MEDS ORDERED: PT OWN MED DRAWER 7, Y5N ONE (10:32)
--- NOTE | 2018-08-14 10:49 | PN ---
Physical Exam: SUBJECTIVE: Patient seen and examined this AM. She states that her blurred vision is better but that she is still having some weakness throughout, mostly in her left leg and left eye pain. OBJECTIVE: Vital Signs Period Temp Pulse Resp BP Sys/Salazar Pulse Ox Last 24 Hr 97.9 F-98.2 F 60-97 20-20 148-154/85-95 99-99 GENERAL: A&O, no acute distress EYES: No visual field loss, though blurred vision in the left eye. Left pupillary afferent defect. EARS, NOSE, THROAT: oropharynx clear without exudates. Moist mucous membranes. LUNGS: CTA b/l, no crackles or wheezes HEART: Regular rate and rhythm, normal S1 and S2 without murmur ABDOMEN: Soft, nontender to palpation, normoactive bowel sounds EXTREMITIES: warm, well-perfused. No peripheral edema. NEUROLOGICAL: Cranial nerves II-XII intact. Normal speech. 4/5 weakness in LLE PSYCHIATRIC: Cooperative. Good eye contact. Appropriate mood and affect. Laboratory Results - last 24 hr 08/13/18 08/13/18 08/13/18 11:35 18:17 22:08 WBC RBC Hgb Hct MCV MCH MCHC RDW Plt Count MPV Sodium Potassium Chloride Carbon Dioxide Anion Gap BUN Creatinine Creat Clearance w eGFR POC Glucometer 102.62559 162 140 Random Glucose Calcium Phosphorus Magnesium 08/14/18 08/14/18 08/14/18 06:35 06:35 06:44 WBC 13.6 H RBC 4.20 Hgb 13.2 Hct 38.6 MCV 91.8 MCH 31.4 MCHC 34.2 RDW 12.4 Plt Count 261 D MPV 9.6 Sodium 135 L Potassium 4.3 Chloride 100 Carbon Dioxide 28 Anion Gap 7 L BUN 18 Creatinine 0.8 Creat Clearance w eGFR > 60 POC Glucometer 124 Random Glucose 120 H Calcium 8.3 L Phosphorus 2.9 Magnesium 2.1 Active Medications Generic Name Dose Route Start Last Admin Trade Name Freq PRN Reason Stop Dose Admin Acetaminophen 650 mg 08/12/18 23:49 08/14/18 00:45 Tylenol - PO 650 mg Q6H PRN Administration PAIN LEVEL 1-5 Acetaminophen/Butalbital/Caffeine 1 tablet 08/13/18 09:27 08/14/18 06:41 Fioricet - PO 1 tablet DAILY PRN Administration HEADACHE Duloxetine HCl 20 mg 08/13/18 10:00 08/13/18 10:30 Cymbalta - PO 20 mg DAILY CAMI Administration Heparin Sodium (Porcine) 5,000 unit 08/13/18 22:00 08/14/18 06:42 Heparin - SQ 5,000 unit TID CAMI Administration Insulin Aspart 1 vial 08/13/18 11:00 08/14/18 06:45 Novolog Vial Sliding Scale - SQ Not Given ACHS CAMI Protocol Methylprednisolone Sodium Succinate 250 mg 08/13/18 21:00 08/14/18 03:09 Solu-Medrol - IVPB 250 mg Q6H-IV CAMI Administration Pantoprazole Sodium 40 mg 08/14/18 10:00 Protonix - PO DAILY CAMI ASSESSMENT/PLAN: 33 yo f w/ PMH MS who comes into the ED c/o a 2 week hx of blurred vision, headaches and LLE weakness. Acute Exacerbation of Multiple Sclerosis with Optic Neuritis -Neurology consult appreciated and case discussed -SoluMedrol 250 mg IV Q6 -BGMs ACHS with Insulin sliding scale for glycemic control due to high dose steroids -To receive 3 days of steroid and reevaluate, can d/c Thursday if resolved, if not continue until Thursday -Can receive Fioricet PRN for Headache Back and left leg pain, likely Lumbar radiculopathy -MRI lumbar spine pending -Cymbalta 20 mg PO Daily, can increase to 30 as per neurology if ineffective DVT Prophylaxis -Lovenox 40 mg SQ Daily FEN -Fluids: none -Electrolytes: No electrolyte abnormalities, BMP in AM -Nutrition: Regular Diet Disposition Med/Surg Visit type - Emergency Visit Emergency Visit: Yes ED Registration Date: 08/13/18 Care time: The patient presented to the Emergency Department on the above date and was hospitalized for further evaluation of their emergent condition. - New Patient This patient is new to me today: No - Critical Care Critical Care patient: No
[2018-08-14] MEDS: PANTOPRAZOLE 40 MG TABLET (FP) PO SCH (10:58)
[2018-08-14] MEDS: DULoxetine HCL 20 MG CAPSULE.DR (FP) PO SCH (10:58)
[2018-08-14] MEDS: ONDANSETRON 4 MG/2 ML VIAL IVPUSH PRN (21:04)
[2018-08-15] MEDS: ACETAMINOPHEN/CAFFEINE/BUTALBITAL 1 TAB PO PRN (03:09)
[2018-08-15] MEDS: methylPREDNISolone NA SUCC 125 MG/2 ML VIAL IVPB SCH ×4 (03:09→21:20)
[2018-08-15] MEDS ORDERED: oxyCODONE HCL 5 MG TABLET PO ONE ×2 (06:11→19:30)
[2018-08-15] MEDS: HEPARIN NA (PORCINE) 5,000 UNITS/ML 1ML VIAL SQ SCH ×4 (07:11→21:43)
[2018-08-15] MEDS: INSULIN SLIDING SCALE (NOVOLOG) 1 VIAL SQ SCH ×4 (08:17→21:27)
[2018-08-15] MEDS ORDERED: PT OWN MED DRAWER 7, Y5N ONE (10:16)
[2018-08-15] MEDS: DULoxetine HCL 20 MG CAPSULE.DR (FP) PO SCH (11:01)
[2018-08-15] MEDS: PANTOPRAZOLE 40 MG TABLET (FP) PO SCH (11:01)
--- NOTE | 2018-08-15 11:33 | PN ---
Progress Note (short form) - Note Progress Note: SUBJECTIVE: Feels improvement in blurred vision but still has pain behind Left eye which she says is intense. Headache improving. OBJECTIVE: Afebrile, Hemodynamically Stable. Last Vital Signs Temp Pulse Resp BP Pulse Ox 98.5 F 65 20 155/96 98 08/14/18 21:13 08/14/18 21:13 08/14/18 21:13 08/14/18 21:13 08/15/18 03:00 HEENT - Atraumatic, Normocephalic. HEART: S1, S2, RRR LUNGS: Clear to auscultation - no crackles/wheeze. ABDOMEN: Soft, non-tender - no guarding or rebound. Bowel Sounds normal. EXTREMITIES: No edema. No calf tenderness. NEUROLOGICAL: Alert, oriented. Normal speech. EOMI. Sensation intact. Strength 5 /5 in LUE/RUE/RLE/LLE. DTRs symmetric. Laboratory Results - last 24 hr 08/14/18 08/14/18 08/15/18 11:17 17:22 08:08 POC Glucometer 137 171 163 08/15/18 11:10 POC Glucometer 122 Current Medications Generic Name Dose Route Start Last Admin Trade Name Freq PRN Reason Stop Dose Admin Acetaminophen 650 mg 08/12/18 23:49 08/14/18 14:58 Tylenol - PO 650 mg Q6H PRN Administration PAIN LEVEL 1-5 Acetaminophen/Butalbital/Caffeine 1 tablet 08/13/18 09:27 08/15/18 03:09 Fioricet - PO 1 tablet DAILY PRN Administration HEADACHE Duloxetine HCl 20 mg 08/13/18 10:00 08/15/18 11:01 Cymbalta - PO 20 mg DAILY CAMI Administration Heparin Sodium (Porcine) 5,000 unit 08/13/18 22:00 08/15/18 07:11 Heparin - SQ Not Given TID CAMI Insulin Aspart 1 vial 08/13/18 11:00 08/15/18 11:12 Novolog Vial Sliding Scale - SQ Not Given ACHS [facility] Protocol Methylprednisolone Sodium Succinate 250 mg 08/13/18 21:00 08/15/18 11:01 Solu-Medrol - IVPB 250 mg Q6H-IV CAMI Administration Ondansetron HCl 4 mg 08/14/18 19:47 08/14/18 21:04 Zofran Injection IVPUSH 4 mg Q8H PRN Administration NAUSEA Pantoprazole Sodium 40 mg 08/14/18 10:00 08/15/18 11:01 Protonix - PO 40 mg DAILY CAMI Administration ASSESSMENT AND PLAN: 33 year old female with a history of MS who presented to the ED with blurred vision, headaches, and left leg pain/weakness for the past 2 weeks. She was recently admitted at [facility] 1 week ago and treated with IV steroids for 3 days then discharged on oral steroid. She is currently referred to the ED from Neurologist's office due to persistence of symptoms. 1. Acute exacerbation of multiple sclerosis with optic neuritis and LLE pain/ weakness Still complains of pain behind Left eye, blurriness improved. Continue SoluMedrol 250 mg IV q6h MRI of brain, C Spine - spine: Multiple areas of demyelinating lesions including L pontine lesion supratentorial lesion, intermedullary plaques C4/5/6/ 7 MRI T/L spine - T9/10demyelinating lesions. No disc disease/herniation/spinal stenosis/cord compression. Neurology, Dr. Velasco, evaluated - to continue IV Solumedrol for 3-5 days; started on Cymbalta, and Fioricet for headache. 2. Leukocytosis - steroid induced. GI Px - Protonix DVT Px - Heparin SQ Visit type - Emergency Visit Emergency Visit: Yes ED Registration Date: 08/13/18 Care time: The patient presented to the Emergency Department on the above date and was hospitalized for further evaluation of their emergent condition. - New Patient This patient is new to me today: No - Critical Care Critical Care patient: No - Discharge Referral Referred to [facility] Med P.C.: No
[2018-08-15] MEDS: ACETAMINOPHEN 325 MG TABLET (FP) PO PRN (17:10)
[2018-08-15] MEDS ORDERED: ACETAMINOPHEN 325 MG TABLET (FP) PO ONE (19:30)
[2018-08-15] MEDS ORDERED: DOCUSATE SODIUM 100 MG CAPSULE (FP) PO ONE (23:45)
[2018-08-16] MEDS: methylPREDNISolone NA SUCC 125 MG/2 ML VIAL IVPB SCH ×4 (03:18→21:07)
[2018-08-16] MEDS: HEPARIN NA (PORCINE) 5,000 UNITS/ML 1ML VIAL SQ SCH ×3 (05:36→21:15)
[2018-08-16] MEDS: ONDANSETRON 4 MG/2 ML VIAL IVPUSH PRN ×2 (05:49→17:28)
[2018-08-16] MEDS: ACETAMINOPHEN/CAFFEINE/BUTALBITAL 1 TAB PO PRN (05:49)
[2018-08-16] MEDS: INSULIN SLIDING SCALE (NOVOLOG) 1 VIAL SQ SCH ×5 (06:35→21:18)
[2018-08-16] MEDS ORDERED: SODIUM CHLORIDE 1,000 ML IV STA (10:43)
[2018-08-16] MEDS: DULoxetine HCL 20 MG CAPSULE.DR (FP) PO SCH (10:57)
[2018-08-16] MEDS: PANTOPRAZOLE 40 MG TABLET (FP) PO SCH (10:58)
[2018-08-16] MEDS: ACETAMINOPHEN 325 MG TABLET (FP) PO PRN ×2 (11:21→17:45)
--- NOTE | 2018-08-16 13:46 | PN ---
Progress Note, Physician Chief Complaint: MS exacerbation History of Present Illness: Notified today of patient that is in the hospital for MS exacerbation, and asked by Dr Bowling to f/u patient who was followed by Dr. Velasco, as I am covering him. This si a 33 year old woman who has MS since 2006, initially diagnosed with episode of optic neuritis at [facility]. She has had recurrent episodes of optic neuritis as well, primarily in the left eye, as well as pain in the legs. She was on Avonex, then Copaxone, and Rebif, but didn 't like the latter so went back to Avonex. She transferred her care to Dr. Velasco, she says because she didn't like that at [place] she kept getting different doctors and she wanted one MD who knew her. Recently Dr. Velasco tried to have her initiate Tecfidera, but she stopped after a week, because she found that the flushing and abdominal discomfort were more than she could bear, even for a short time. She then went back to Avonex about a month ago. Coincident with her first dose starting back on the Avonex, she noticed blurring of her right eye, which normally doesn't get involved with optic neuritis. 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 She presented to the [facility] ER and was admitted for 3 days of IV steroids followed by an outpatient taper. She wasn't better so then went to 's office and he readmitted her for a 5 day IV steroid course, and while she is better than she had been, she is not back to baseline. - Current Medication List Current Medications: Active Medications Acetaminophen (Tylenol -) 650 mg PO Q6H PRN PRN Reason: PAIN LEVEL 1-5 Last Admin: 08/16/18 11:21 Dose: 650 mg Acetaminophen/Butalbital/Caffeine (Fioricet -) 1 tablet PO DAILY PRN PRN Reason: HEADACHE Last Admin: 08/16/18 05:49 Dose: 1 tablet Duloxetine HCl (Cymbalta -) 20 mg PO DAILY CAMI Last Admin: 08/16/18 10:57 Dose: 20 mg Heparin Sodium (Porcine) (Heparin -) 5,000 unit SQ TID [facility] Last Admin: 08/16/18 05:36 Dose: Not Given Insulin Aspart (Novolog Vial Sliding Scale -) 1 vial SQ ACHS [facility]; Protocol Last Admin: 08/16/18 11:58 Dose: Not Given Methylprednisolone Sodium Succinate (Solu-Medrol -) 250 mg IVPB Q6H-IV CAMI Last Admin: 08/16/18 10:57 Dose: 250 mg Ondansetron HCl (Zofran Injection) 4 mg IVPUSH Q8H PRN PRN Reason: NAUSEA Last Admin: 08/16/18 05:49 Dose: 4 mg Pantoprazole Sodium (Protonix -) 40 mg PO DAILY [facility] Last Admin: 08/16/18 10:58 Dose: 40 mg - Objective Vital Signs: Vital Signs Temperature 98.6 F 08/16/18 13:00 Pulse Rate 104 H 08/16/18 13:00 Respiratory Rate 18 08/16/18 13:00 Blood Pressure 185/104 H 08/16/18 13:00 O2 Sat by Pulse Oximetry (%) 96 08/15/18 11:00 Neurological: Yes: Alert, Oriented, Babinski negative, Cran Nerves II-XII Intact (except for reduced subjective acuity in the left eye. Red desaturation in the left eye.), Other (No pronator drift. Full motor strength. Sensation OK.) Labs: CBC, BMP 08/14/18 06:35 08/14/18 06:35 INR, PTT INR 0.98 (0.83-1.09) 08/13/18 05:20 - ....Imaging MRI: Report Reviewed, Image Reviewed (Brain several lesions, none with enhancement. No enhancement reported. Looking for it, I can possibly see some enhancement faintly along the left optic nerve, but its hard to be certain on this screen. T spine and C spine and L spine reviewed. These were done without contrast and the t and c spine showed demyelinating plaques but its impossible to tell whether these were acute or not.) Problem List - Problems (1) Exacerbation of multiple sclerosis Code(s): G35 - MULTIPLE SCLEROSIS (2) Optic neuritis due to multiple sclerosis Code(s): H46.9 - UNSPECIFIED OPTIC NEURITIS; G35 - MULTIPLE SCLEROSIS Assessment/Plan Improving optic neuritis though not back to baseline. Would continue through day 5 of Solumedrol. Recommend ophthalmology evaluation, though not certain that that needs to occur in house. I'll let Dr. Velasco know that I saw her. Thanks.
--- NOTE | 2018-08-16 14:08 | PN ---
Progress Note (short form) - Note Progress Note: SUBJECTIVE: Feels improvement in blurred vision but still has pain behind Left eye. Ongoing LLE pain. Lightheadedness on ambulation this AM OBJECTIVE: Afebrile, Hemodynamically Stable. Last Vital Signs Temp Pulse Resp BP Pulse Ox 98.6 F 108 H 18 180/103 H 96 08/16/18 13:00 08/16/18 13:30 08/16/18 13:00 08/16/18 13:30 08/15/18 11:00 HEENT - Atraumatic, Normocephalic. HEART: S1, S2, RRR LUNGS: Clear to auscultation - no crackles/wheeze. ABDOMEN: Soft, non-tender - no guarding or rebound. Bowel Sounds normal. EXTREMITIES: No edema. No calf tenderness. NEUROLOGICAL: AAO x 3. Normal speech. EOMI. Sensation intact. Strength 5/5 in LUE/RUE/RLE/LLE. DTRs symmetric. Laboratory Results - last 24 hr 08/15/18 08/15/18 08/16/18 17:13 21:26 05:55 POC Glucometer 205 150 124 08/16/18 11:56 POC Glucometer 122 Current Medications Generic Name Dose Route Start Last Admin Trade Name Freq PRN Reason Stop Dose Admin Acetaminophen 650 mg 08/12/18 23:49 08/16/18 11:21 Tylenol - PO 650 mg Q6H PRN Administration PAIN LEVEL 1-5 Acetaminophen/Butalbital/Caffeine 1 tablet 08/13/18 09:27 08/16/18 05:49 Fioricet - PO 1 tablet DAILY PRN Administration HEADACHE Duloxetine HCl 20 mg 08/13/18 10:00 08/16/18 10:57 Cymbalta - PO 20 mg DAILY [facility] Administration Heparin Sodium (Porcine) 5,000 unit 08/13/18 22:00 08/16/18 05:36 Heparin - SQ Not Given TID [facility] Insulin Aspart 1 vial 08/13/18 11:00 08/16/18 11:58 Novolog Vial Sliding Scale - SQ Not Given ACHS [facility] Protocol Methylprednisolone Sodium Succinate 250 mg 08/13/18 21:00 08/16/18 10:57 Solu-Medrol - IVPB 250 mg Q6H-IV [facility] Administration Ondansetron HCl 4 mg 08/14/18 19:47 08/16/18 05:49 Zofran Injection IVPUSH 4 mg Q8H PRN Administration NAUSEA Pantoprazole Sodium 40 mg 08/14/18 10:00 08/16/18 10:58 Protonix - PO 40 mg DAILY [facility] Administration ASSESSMENT AND PLAN: 33 year old female with a history of MS who presented to the ED with blurred vision, headaches, and left leg pain/weakness for the past 2 weeks. She was recently admitted at [facility] 1 week ago and treated with IV steroids for 3 days then discharged on oral steroid. She was referred to the ED from Neurologist Dr. Velasco's office due to persistence of symptoms. 1. Acute exacerbation of multiple sclerosis with optic neuritis and LLE pain/ weakness Still complains of pain behind Left eye, blurriness improved. MRI of brain, C Spine - spine: Multiple areas of demyelinating lesions including L pontine lesion supratentorial lesion, intermedullary plaques C4/5/6/ 7 MRI T/L spine - T9/10demyelinating lesions. No disc disease/herniation/spinal stenosis/cord compression. Neurology, Dr. Velasco, evaluated - to continue IV Solumedrol for 5 days. Also started on Cymbalta and Fioricet for headache. Ophthalmology eval as out-patient as per Neurology. 2. Leukocytosis - steroid induced. 3. Orthostasis with Lightheadedness on ambulation. Will request Echo. GI Px - Protonix (while on IV Steroid) DVT Px - Heparin SQ Visit type - Emergency Visit Emergency Visit: Yes ED Registration Date: 08/13/18 Care time: The patient presented to the Emergency Department on the above date and was hospitalized for further evaluation of their emergent condition. - New Patient This patient is new to me today: No - Critical Care Critical Care patient: No - Discharge Referral Referred to [facility] Med P.C.: No
[2018-08-16] MEDS: POLYETHYLENE GLYCOL 3350 119 GM BTL PO SCH (15:19)
--- NOTE | 2018-08-16 16:38 | CON.CARD ---
Consult Consult Specialty:: Cardiology Referred by:: Hospitalist Reason for Consultation:: Cardiac evaluation - History of Present Illness Chief Complaint: Admitted with MS and optic neuritis History of Present Illness: Patient is a 33 year old female with underlying history of MS who comes in with history of blurred vision, headache and both upper and lower extremity weakness. She was recently hospitalized at [facility] for treatment of optic neuritis and presented with above symptoms. She was given large amount of steroids and after being discharged, she was followed up with Dr. Velasco. She was referred for admission as per Dr. Velasco for further treatment in hospital. She was given NS bolus for orthostasis and currently has resting BP of 160-180 systolic. Standing BP is 114 systolic with HR of 117 bpm. She denies chest pain, SOB or palpitations. She denies paroxysmal nocturnal dyspnea or orthopnea. She denies fever or chills. She denies nausea, vomiting, diarrhea or abdominal pain. She complains of intermittent headach and still has blurred vision and weakness. - History Source History Provided By: Patient, Medical Record Limitations to Obtaining History: No Limitations - Past Medical History SOLICITOR PATENT: Yes: Other (Multiple sclerosis) ...LMP: 07/28/18 ...: No - Past Surgical History Past Surgical History: Yes: None - Alcohol/Substance Use Hx Alcohol Use: No - Smoking History Smoking history: Never smoked Have you smoked in the past 12 months: No Home Medications - Allergies Allergies/Adverse Reactions: Allergies Allergy/AdvReac Type Severity Reaction Status Date / Time No Known Allergies Allergy Verified 08/12/18 19:07 - Home Medications Home Medications: Ambulatory Orders Unobtainable 08/12/18 Family Disease History - Family Disease History Family Disease History: Other: Grandparent (stroke and ppm) Other Family History: History of HTN Review of Systems - Review of Systems Constitutional: denies: Chills, Fever Cardiovascular: reports: Chest Pain. denies: Palpitations, Shortness of Breath Respiratory: denies: Cough, Hemoptysis, SOB, SOB on Exertion Gastrointestinal: denies: Abdominal Pain, Constipation, Diarrhea, Melena, Nausea , Rectal Bleeding, Vomiting Musculoskeletal: denies: Joint Pain Neurological: reports: Headache, Weakness. denies: Dizziness, Seizure, Syncope Vital Signs: Vital Signs Temperature 98 F 08/16/18 15:37 Pulse Rate 104 H 08/16/18 15:39 Respiratory Rate 18 08/16/18 13:00 Blood Pressure 127/90 08/16/18 15:39 O2 Sat by Pulse Oximetry (%) 97 08/16/18 10:00 Eyes: Yes: PERRL HENT: Yes: Atraumatic Neck: Yes: Supple Respiratory: Yes: CTA Bilaterally Gastrointestinal: Yes: Normal Bowel Sounds, Soft. No: Tenderness Cardiovascular: Yes: Regular Rate and Rhythm JVD: No Carotid Bruit: No PMI: Non-Displaced Heart Sounds: Yes: S1, S2 Murmur: No: Systolic Murmur, Diastolic Murmur Edema: No - Other Data Labs, Other Data: CBC, BMP 08/14/18 06:35 08/14/18 06:35 INR, PTT INR 0.98 (0.83-1.09) 08/13/18 05:20 Pending Echo: Pending Imaging - Results MRI: Report Reviewed (Brain MRI: supratentorial demyelination Thoracic and lumbar MRI: demyelinating plaques) Problem List - Problems (1) Elevated blood pressure reading Code(s): R03.0 - ELEVATED BLOOD-PRESSURE READING, W/O DIAGNOSIS OF HTN (2) Orthostasis Code(s): I95.1 - ORTHOSTATIC HYPOTENSION (3) Exacerbation of multiple sclerosis Code(s): G35 - MULTIPLE SCLEROSIS (4) Optic neuritis due to multiple sclerosis Code(s): H46.9 - UNSPECIFIED OPTIC NEURITIS; G35 - MULTIPLE SCLEROSIS Assessment/Plan 1. Fluctuating blood pressure with periods of HTN and with orthostasis 2. Acute MS with optic neuritis and both upper and lower extremity weakness 3. Elevated WBC PLAN: 1. Avoid excessive fluid boluses 2. Monitor BP closely which can be elevated due to steroids and the orthostasis possibly autonomic. Patient does not appear dehydrated 3. Agree with echocardiography to assess LV/RV and valvular function 4. ECG Further plans are to follow Erich Rucker MD
[2018-08-16] MEDS ORDERED: oxyCODONE HCL 5 MG TABLET PO ONE (23:00)
[2018-08-17] MEDS: methylPREDNISolone NA SUCC 125 MG/2 ML VIAL IVPB SCH ×4 (02:53→20:47)
[2018-08-17] MEDS: HEPARIN NA (PORCINE) 5,000 UNITS/ML 1ML VIAL SQ SCH ×3 (05:27→21:33)
[2018-08-17] MEDS: ACETAMINOPHEN/CAFFEINE/BUTALBITAL 1 TAB PO PRN (05:34)
[2018-08-17] MEDS: INSULIN SLIDING SCALE (NOVOLOG) 1 VIAL SQ SCH ×4 (06:26→21:33)
--- NOTE | 2018-08-17 08:58 | PN ---
Progress Note (short form) - Note Progress Note: Neurology HISTORY OF PRESENT ILLNESS: The patient is a 33 yo f w/ PMH MS who comes into the ED c/o a 2 week hx of blurred vision, headaches and LLE weakness. The patient sought medical attention at [place] and was admitted there for treatment of these complaints. She was treated with 1g of IV solumedrol for three days and discharged home with a large amount of PO steroids and instructed to follow up. The patient's symptoms had not resolved on discharge and therefore saw me in the office on and referred her for admission upon hearing that her symptoms persisted. Imaging was not done at [place]. Patient also complains of headaches 2/2 to the blurred vision as well as LLE weakness along with radicular pain. Patient denied loss of sensation or paralysis. Patient denies slurred speech or facial droop. Completed MRI brain with hypertense L pontine lesion. Supratentorial white matter plaques as well. On C Spine MRI, C4 plaque as well as smaller C5, C6, C7 plauques noted. T spine MRI completed and with T9 and T10 lesions/ plaques noted. MRI L spine reviewed and without plaques. SHe does not feel she has improved despite 5 days course of steroids completed tonight. Reached out to [place] career development coordinator to facilitate transfer to [place] for advanced care. Patient provided multiple options but prefers transfer. Discussed with nurse and hospitalist, both aware. Allergies No Known Allergies Allergy (Verified 08/12/18 19:07) Active Medications Acetaminophen (Tylenol -) 650 mg PO Q6H PRN PRN Reason: PAIN LEVEL 1-5 Last Admin: 08/16/18 17:45 Dose: 650 mg Acetaminophen/Butalbital/Caffeine (Fioricet -) 1 tablet PO DAILY PRN PRN Reason: HEADACHE Last Admin: 08/17/18 05:34 Dose: 1 tablet Duloxetine HCl (Cymbalta -) 20 mg PO DAILY [facility] Last Admin: 08/16/18 10:57 Dose: 20 mg Heparin Sodium (Porcine) (Heparin -) 5,000 unit SQ TID [facility] Last Admin: 08/17/18 05:27 Dose: Not Given Insulin Aspart (Novolog Vial Sliding Scale -) 1 vial SQ ACHS [facility]; Protocol Last Admin: 08/17/18 06:26 Dose: Not Given Methylprednisolone Sodium Succinate (Solu-Medrol -) 250 mg IVPB Q6H-IV [facility] Last Admin: 08/17/18 02:53 Dose: 250 mg Ondansetron HCl (Zofran Injection) 4 mg IVPUSH Q8H PRN PRN Reason: NAUSEA Last Admin: 08/16/18 17:28 Dose: 4 mg Pantoprazole Sodium (Protonix -) 40 mg PO DAILY [facility] Last Admin: 08/16/18 10:58 Dose: 40 mg Polyethylene Glycol (Miralax (For Daily Use) -) 17 gm PO DAILY [facility] Last Admin: 08/16/18 15:19 Dose: 17 gm PHYSICAL EXAMINATION Vital Signs Period Temp Pulse Resp BP Sys/Salazar Pulse Ox Last 24 Hr 97.9 F-98.6 F 69-124 18-20 91-194/53-109 97 GENERAL: Awake, alert, and fully oriented, in no acute distress. HEAD: Normal with no signs of trauma. EYES: Pupils equal, round. Left pupil sluggish in response to light. Right pupil with brisk response to light. Consensual pupillary reaction intact. extraocular movements intact. Patient endorses left eye pain upon asked to look up and to the right. sclera anicteric, conjunctiva clear. No lid lag. LUNGS: Breath sounds equal, clear to auscultation bilaterally. No wheezes, and no crackles. No accessory muscle use. HEART: Regular rate and rhythm, normal S1 and S2 without murmur, rub or gallop. ABDOMEN: Soft, nontender, not distended, normoactive bowel sounds, no guarding, no rebound, no masses. No hepatomegaly or splenomegaly. LOWER EXTREMITIES: 2+ pulses, warm, well-perfused. No calf tenderness. No peripheral edema. NEUROLOGICAL: Cranial nerves II-X intact except for eyes noted above. Normal speech. Strength 5/5 in both upper extremities, 5/5 in the right lower extremity , 5-/5 in left lower extremity. SKIN: Warm, dry, normal turgor, no rashes or lesions noted, normal capillary refill. CBCD WBC 13.6 K/mm3 (4.0-10.0) H 08/14/18 06:35 RBC 4.20 M/mm3 (3.60-5.2) 08/14/18 06:35 Hgb 13.2 GM/dL (10.7-15.3) 08/14/18 06:35 Hct 38.6 % (32.4-45.2) 08/14/18 06:35 MCV 91.8 fl (80-96) 08/14/18 06:35 MCHC 34.2 g/dl (32.0-36.0) 08/14/18 06:35 RDW 12.4 % (11.6-15.6) 08/14/18 06:35 Plt Count 261 K/MM3 (134-434) D 08/14/18 06:35 MPV 9.6 fl (7.5-11.1) 08/14/18 06:35 CMP Sodium 135 mmol/L (136-145) L 08/14/18 06:35 Potassium 4.3 mmol/L (3.5-5.1) 08/14/18 06:35 Chloride 100 mmol/L (98-107) 08/14/18 06:35 Carbon Dioxide 28 mmol/L (21-32) 08/14/18 06:35 Anion Gap 7 MMOL/L (8-16) L 08/14/18 06:35 BUN 18 mg/dL (7-18) 08/14/18 06:35 Creatinine 0.8 mg/dL (0.55-1.3) 08/14/18 06:35 Creat Clearance w eGFR > 60 (>60) 08/14/18 06:35 Random Glucose 120 mg/dL (74-106) H 08/14/18 06:35 Calcium 8.3 mg/dL (8.5-10.1) L 08/14/18 06:35 Total Bilirubin 0.4 mg/dL (0.2-1) 08/12/18 18:40 AST 41 U/L (15-37) H 08/12/18 18:40 ALT 33 U/L (13-61) 08/12/18 18:40 Alkaline Phosphatase 49 U/L (45-117) 08/12/18 18:40 Total Protein 7.5 g/dl (6.4-8.2) 08/12/18 18:40 Albumin 3.5 g/dl (3.4-5.0) 08/12/18 18:40 MRI Brain reviewed MRI C spine reviewed MRI T spine reviewed MRI L spine reviewed ASSESSMENT/PLAN: 33 yo f w/ PMH MS who comes into the ED c/o a 2 week hx of blurred vision, headaches and LLE weakness. The patient sought medical attention at [place] and was admitted there for treatment of these complaints. She was treated with 1g of IV solumedrol for three days and discharged home with a large amount of PO steroids and instructed to follow up. The patient's symptoms had not resolved on discharge and therefore saw me in the office on 08/13 and referred her for admission upon hearing that her symptoms persisted. Imaging was not done at [place]. Patient also complains of headaches 2/2 to the blurred vision as well as LLE weakness along with radicular pain. Patient denied loss of sensation or paralysis. Patient denies slurred speech or facial droop. Completed MRI brain with hypertense L pontine lesion. Supratentorial white matter plaques as well. On C Spine MRI, C4 plaque as well as smaller C5, C6, C7 plauques noted. T spine MRI completed and with T9 and T10 lesions/plaques noted. MRI L spine reviewed and without plaques. SHe does not feel she has improved despite 5 days course of steroids to be completed tonight. Reached out to [place] career development coordinator to facilitate transfer to [place] for advanced care. Patient provided multiple options but prefers transfer. Discussed with nurse and hospitalist, both aware. Remains on duloxetine 20mg for symptoms of lumbar radiculopathy for now. Fioricet for tension headaches. Continue steroids for now, completion tonight, RISS, PPI, monitor glucose.
[2018-08-17] MEDS ORDERED: PT OWN MED DRAWER 7, Y5N ONE (09:20)
[2018-08-17] MEDS: PANTOPRAZOLE 40 MG TABLET (FP) PO SCH (09:25)
[2018-08-17] MEDS: POLYETHYLENE GLYCOL 3350 119 GM BTL PO SCH (09:27)
[2018-08-17] MEDS: DULoxetine HCL 20 MG CAPSULE.DR (FP) PO SCH (09:27)
--- NOTE | 2018-08-17 11:54 | PN ---
Progress Note, Physician Chief Complaint: Still with blurred vision and weakness History of Present Illness: Patient was seen and examined. Awake and alert. Chart was reviewed Denies chest pain, SOB or palpitations Elevated blood pressure intermittently, but now appears better - Current Medication List Current Medications: Active Medications Acetaminophen (Tylenol -) 650 mg PO Q6H PRN PRN Reason: PAIN LEVEL 1-5 Last Admin: 08/16/18 17:45 Dose: 650 mg Acetaminophen/Butalbital/Caffeine (Fioricet -) 1 tablet PO DAILY PRN PRN Reason: HEADACHE Last Admin: 08/17/18 05:34 Dose: 1 tablet Duloxetine HCl (Cymbalta -) 20 mg PO DAILY [facility] Last Admin: 08/17/18 09:27 Dose: 20 mg Heparin Sodium (Porcine) (Heparin -) 5,000 unit SQ TID [facility] Last Admin: 08/17/18 05:27 Dose: Not Given Insulin Aspart (Novolog Vial Sliding Scale -) 1 vial SQ ACHS [facility]; Protocol Last Admin: 08/17/18 06:26 Dose: Not Given Methylprednisolone Sodium Succinate (Solu-Medrol -) 250 mg IVPB Q6H-IV [facility] Last Admin: 08/17/18 09:25 Dose: 250 mg Ondansetron HCl (Zofran Injection) 4 mg IVPUSH Q8H PRN PRN Reason: NAUSEA Last Admin: 08/16/18 17:28 Dose: 4 mg Pantoprazole Sodium (Protonix -) 40 mg PO DAILY [facility] Last Admin: 08/17/18 09:25 Dose: 40 mg Polyethylene Glycol (Miralax (For Daily Use) -) 17 gm PO DAILY [facility] Last Admin: 08/17/18 09:27 Dose: 17 gm - Objective Vital Signs: Vital Signs Temperature 97.1 F L 08/17/18 09:00 Pulse Rate 84 08/17/18 09:00 Respiratory Rate 18 08/17/18 09:00 Blood Pressure 129/71 08/17/18 09:00 O2 Sat by Pulse Oximetry (%) 97 08/16/18 10:00 Eyes: Yes: PERRL HENT: Yes: Atraumatic Neck: Yes: Supple Cardiovascular: Yes: Regular Rate and Rhythm, S1, S2 Respiratory: Yes: CTA Bilaterally Gastrointestinal: Yes: Normal Bowel Sounds, Soft. No: Tenderness Edema: No Additional Findings/Remarks: - Review of Systems Constitutional: denies: Chills, Fever Cardiovascular: reports: Chest Pain. denies: Palpitations, Shortness of Breath Respiratory: denies: Cough, Hemoptysis, SOB, SOB on Exertion Gastrointestinal: denies: Abdominal Pain, Constipation, Diarrhea, Melena, Nausea , Rectal Bleeding, Vomiting Musculoskeletal: denies: Joint Pain Neurological: reports: Headache, Weakness. denies: Dizziness, Seizure, Syncope Problem List - Problems (1) Elevated blood pressure reading Code(s): R03.0 - ELEVATED BLOOD-PRESSURE READING, W/O DIAGNOSIS OF HTN (2) Orthostasis Code(s): I95.1 - ORTHOSTATIC HYPOTENSION (3) Exacerbation of multiple sclerosis Code(s): G35 - MULTIPLE SCLEROSIS (4) Optic neuritis due to multiple sclerosis Code(s): H46.9 - UNSPECIFIED OPTIC NEURITIS; G35 - MULTIPLE SCLEROSIS Assessment/Plan 1. Fluctuating blood pressure with periods of HTN and with orthostasis 2. Acute MS with optic neuritis and both upper and lower extremity weakness 3. Elevated WBC PLAN: 1. Avoid excessive fluid boluses 2. Monitor BP closely which can be elevated due to steroids. Monitor for orthostasis. If BP remains elevated, may use small dose of calcium channel yola 3. Echocardiography to assess LV/RV and valvular function 4. Plan to transfer to [facility] as per Dr. Velasco Further plans are to follow Erich Rucker MD
--- NOTE | 2018-08-17 14:40 | ECHO ---
Name: MANUEL COFFEY Exam:Adult Echocardiogram Study Date: 08/17/2018 11:07 AM Age: 33 yrs Reason For Study: ORTHOSTATIC HYPOETNSION DIZZINESS Height: 63 in Weight: 132 lb BSA: 1.6 m2 MMode/2D Measurements & Calculations IVSd: 0.77 cm Ao root diam: 2.4 cm LVIDd: 3.5 cm LA dimension: 2.9 cm LVIDs: 2.5 cm LVPWd: 0.76 cm EDV(Teich): 50.0 ml ESV(Teich): 21.7 ml Doppler Measurements & Calculations MV E max santosh: 58.2 cm/sec PI end-d santosh: 74.9 cm/sec MV A max santosh: 55.8 cm/sec MV E/A: 1.0 MV dec time: 0.22 sec Med Peak E' Santosh: 12.4 cm/sec Med E/e': 4.7 Lat Peak E' Santosh: 13.6 cm/sec Lat E/e': 4.3 Left Ventricle The left ventricular size, thickness and function are normal. Ejection Fraction = 65. Left Ventricula r Filling pattern is normal for age. Right Ventricle The right ventricle is normal in size and function. Atria Normal left and right atrial size and function. Mitral Valve The mitral valve is normal. Tricuspid Valve The tricuspid valve is normal. There is trace tricuspid regurgitation. Aortic Valve The aortic valve is normal in structure and function. Pulmonic Valve The pulmonic valve is not well seen, but is grossly normal. Great Vessels The aortic root is normal size. Normal aortic arch, descending and ascending aorta. Pericardium/Pleura There is no pericardial effusion. Interpretation Summary The left ventricular size, thickness and function are normal Ejection Fraction = 65. Left Ventricular Filling pattern is normal for age. The right ventricle is normal in size and function. Normal left and right atrial size and function. The mitral valve is normal. The tricuspid valve is normal. There is trace tricuspid regurgitation. The aortic valve is normal in structure and function. The pulmonic valve is not well seen, but is grossly normal. The aortic root is normal size. Normal aortic arch, descending and ascending aorta There is no pericardial effusion. Alessandro Manning 08/17/2018 02:40 PM
--- NOTE | 2018-08-17 15:27 | PN ---
Physical Exam: SUBJECTIVE: Patient seen and examined this AM. She states her weakness has improved but is still present and specifically her optic neuritis is still present following full course of steroids. OBJECTIVE: Vital Signs Period Temp Pulse Resp BP Sys/Salazar Pulse Ox Last 24 Hr 97.1 F-98.3 F 69-117 18-20 114-194/70-109 GENERAL: A&O, no acute distress EYES: No visual field loss, though blurred vision in the left eye. Left pupillary afferent defect EARS, NOSE, THROAT: oropharynx clear without exudates. Moist mucous membranes. LUNGS: CTA b/l, no crackles or wheezes HEART: Regular rate and rhythm, normal S1 and S2 without murmur ABDOMEN: Soft, nontender to palpation, normoactive bowel sounds EXTREMITIES: warm, well-perfused. No peripheral edema. NEUROLOGICAL: Cranial nerves II-XII intact. Normal speech. 5/5 strength now in LLE PSYCHIATRIC: Cooperative. Good eye contact. Appropriate mood and affect. Laboratory Results - last 24 hr 08/16/18 08/16/18 08/17/18 17:29 21:18 05:36 POC Glucometer 150 131 117 08/17/18 12:29 POC Glucometer 111 Active Medications Generic Name Dose Route Start Last Admin Trade Name Freq PRN Reason Stop Dose Admin Acetaminophen 650 mg 08/12/18 23:49 08/16/18 17:45 Tylenol - PO 650 mg Q6H PRN Administration PAIN LEVEL 1-5 Acetaminophen/Butalbital/Caffeine 1 tablet 08/13/18 09:27 08/17/18 05:34 Fioricet - PO 1 tablet DAILY PRN Administration HEADACHE Duloxetine HCl 20 mg 08/13/18 10:00 08/17/18 09:27 Cymbalta - PO 20 mg DAILY [facility] Administration Heparin Sodium (Porcine) 5,000 unit 08/13/18 22:00 08/17/18 15:17 Heparin - SQ Not Given TID [facility] Insulin Aspart 1 vial 08/13/18 11:00 08/17/18 12:39 Novolog Vial Sliding Scale - SQ Not Given ACHS [facility] Protocol Methylprednisolone Sodium Succinate 250 mg 08/13/18 21:00 08/17/18 15:17 Solu-Medrol - IVPB 250 mg Q6H-IV [facility] Administration Ondansetron HCl 4 mg 08/14/18 19:47 08/16/18 17:28 Zofran Injection IVPUSH 4 mg Q8H PRN Administration NAUSEA Pantoprazole Sodium 40 mg 08/14/18 10:00 08/17/18 09:25 Protonix - PO 40 mg DAILY [facility] Administration Polyethylene Glycol 17 gm 08/16/18 14:15 08/17/18 09:27 Miralax (For Daily Use) - PO 17 gm DAILY [facility] Administration ASSESSMENT/PLAN: 33 yo f w/ PMH MS who comes into the ED c/o a 2 week hx of blurred vision, headaches and LLE weakness. Acute Exacerbation of Multiple Sclerosis with Optic Neuritis -Neurology consult appreciated and case discussed -SoluMedrol 250 mg IV Q6 -BGMs ACHS with Insulin sliding scale for glycemic control due to high dose steroids -Received 5 days of high dose Solumedrol without much improvement -Can receive Fioricet PRN for Headache -Options discussed with pt as per neurology, at this time likely best to transfer to [facility] for further management. Back and left leg pain -MRI lumbar spine without concerning compression -Cymbalta 20 mg PO Daily, can increase to 30 as per neurology if ineffective DVT Prophylaxis -Lovenox 40 mg SQ Daily FEN -Fluids: none -Electrolytes: No electrolyte abnormalities, BMP in AM -Nutrition: Regular Diet Disposition Med/Surg Visit type - Emergency Visit Emergency Visit: Yes ED Registration Date: 08/13/18 Care time: The patient presented to the Emergency Department on the above date and was hospitalized for further evaluation of their emergent condition. - New Patient This patient is new to me today: No - Critical Care Critical Care patient: No
--- NOTE | 2018-08-17 15:37 | PN ---
Teaching Attending Note Name of Resident: Nolberto Diaz ATTENDING PHYSICIAN STATEMENT I saw and evaluated the patient. I reviewed the resident's note and discussed the case with the resident. I agree with the resident's findings and plan as documented. SUBJECTIVE: Patient complains of weakness and pain in both legs. OBJECTIVE: Vital Signs Period Temp Pulse Resp BP Sys/Salazar Pulse Ox Last 24 Hr 97.1 F-98.3 F 69-117 18-20 114-194/70-109 HEART: S1S2, RRR LUNGS: Clear ABDOMEN: Soft, non-tender, non-distended, normal BS EXTREMITIES: No edema NEUROLOGICAL: Alert, oriented, left pupil sluggish, visual curry intact, strength intact, sensation intact Laboratory Results - last 24 hr 08/16/18 08/16/18 08/17/18 17:29 21:18 05:36 POC Glucometer 150 131 117 08/17/18 12:29 POC Glucometer 111 Current Medications Generic Name Dose Route Start Last Admin Trade Name Freq PRN Reason Stop Dose Admin Acetaminophen 650 mg 08/12/18 23:49 08/16/18 17:45 Tylenol - PO 650 mg Q6H PRN Administration PAIN LEVEL 1-5 Acetaminophen/Butalbital/Caffeine 1 tablet 08/13/18 09:27 08/17/18 05:34 Fioricet - PO 1 tablet DAILY PRN Administration HEADACHE Duloxetine HCl 20 mg 08/13/18 10:00 08/17/18 09:27 Cymbalta - PO 20 mg DAILY [facility] Administration Heparin Sodium (Porcine) 5,000 unit 08/13/18 22:00 08/17/18 15:17 Heparin - SQ Not Given TID [facility] Insulin Aspart 1 vial 08/13/18 11:00 08/17/18 12:39 Novolog Vial Sliding Scale - SQ Not Given ACHS [facility] Protocol Methylprednisolone Sodium Succinate 250 mg 08/13/18 21:00 08/17/18 15:17 Solu-Medrol - IVPB 250 mg Q6H-IV [facility] Administration Ondansetron HCl 4 mg 08/14/18 19:47 08/16/18 17:28 Zofran Injection IVPUSH 4 mg Q8H PRN Administration NAUSEA Pantoprazole Sodium 40 mg 08/14/18 10:00 08/17/18 09:25 Protonix - PO 40 mg DAILY [facility] Administration Polyethylene Glycol 17 gm 08/16/18 14:15 08/17/18 09:27 Miralax (For Daily Use) - PO 17 gm DAILY [facility] Administration ASSESSMENT AND PLAN: This is a 33 year old woman with a history of MS who presented to the ED with blurred vision, headaches, and left leg pain and weakness. 1. Acute exacerbation of multiple sclerosis with optic neuritis and LLE pain/ weakness - Did not respond to SoluMedrol - Arrangements being made for transfer to [place] 2. Tension headache - Continue Cymbalta, Fioricet as needed 3. Leukocytosis - Steroid-induced 4. Orthostasis - Echo shows normal LV, LVEF 65%, normal RV, trace TR
--- NOTE | 2018-08-17 16:47 | EKG ---
Test Reason : Blood Pressure : / mmHG Vent. Rate : 076 BPM Atrial Rate : 076 BPM P-R Int : 112 ms QRS Dur : 088 ms QT Int : 360 ms P-R-T Axes : 047 018 012 degrees QTc Int : 405 ms NORMAL SINUS RHYTHM INCOMPLETE RBBB NONSPECIFIC ST ABNORMALITY ABNORMAL ECG Confirmed by MD CAT, YASMIN ([id number]) on 08/17/2018 4:47:08 PM Referred By: Confirmed By:YASMIN SHELTON MD
--- NOTE | 2018-08-17 17:47 | DS ---
Physical Exam: SUBJECTIVE: Patient seen and examined this AM. states that she still feels weak throughout and concerned with her variances in blood pressure. she states that she is still having significant pain and some blurred vision on her left side. OBJECTIVE: Vital Signs Period Temp Pulse Resp BP Sys/Salazar Pulse Ox Last 24 Hr 97.1 F-99 F 69-125 18-20 125-194/69-109 PHYSICAL EXAM GENERAL: A&O, no acute distress EYES: No visual field loss, though blurred vision in the left eye. Left pupillary afferent defect EARS, NOSE, THROAT: oropharynx clear without exudates. Moist mucous membranes. LUNGS: CTA b/l, no crackles or wheezes HEART: Regular rate and rhythm, normal S1 and S2 without murmur ABDOMEN: Soft, nontender to palpation, normoactive bowel sounds EXTREMITIES: warm, well-perfused. No peripheral edema. NEUROLOGICAL: Cranial nerves II-XII intact. Normal speech. 5/5 strength now in LLE PSYCHIATRIC: Cooperative. Good eye contact. Appropriate mood and affect. LABS Laboratory Results - last 24 hr 08/16/18 08/16/18 08/17/18 17:29 21:18 05:36 POC Glucometer 150 131 117 08/17/18 12:29 POC Glucometer 111 HOSPITAL COURSE: Date of Admission:08/13/18 Date of Discharge: 08/17/18 HPI on Admission: The patient is a 33 yo f w/ PMH MS who comes into the ED c/o a 2 week hx of blurred vision, headaches and LLE weakness. The patient sought medical attention at [facility] and was admitted there for treatment of these complaints. Per the patient, she was treated with 3 doses (amount unknown) of IV steroids and discharged home with a large amount of PO steroids and instructed to follow up. The patient's symptoms had not resolved on discharge. Today, the patient saw her neurologist, Dr. Velasco, who referred her for admission upon hearing that her symptoms were not improving. Patient also complains of headaches 2/2 to the blurred vision as well as LLE weakness for the same period of time. Patient denies loss of sensation or paralysis. Patient denies slurred speech or facial droop. Patient denies Chest pain, SOB, fevers, chills, dysuria. ER course was notable for: (1) Dr. Velasco consulted from the ER; suggests 250mg medrol Q6h and 40mg IV protonix daily as well as MRI of brain, and cervical, thoracic and lumbar spine w/ w/o contrast. (2) Labs unremarkable Hospital Course: Pt was given 5 days SoluMedrol 250 mg IV Q6 as per neurology. MRI thoracic and lumbar spine were done in addition to MRI brain and cervical spine. numerous plaques noted throughout MRI imaging in brain and spinal cord. Pt initially had significant left leg pain and weakness which was worsened upon lying flat, though MRI lumbar spine negative for any concerning nerve root impingement or cord compression. When pt did not improve after 5 additional days (keeping in consideration recent admission last week with 3 days IV steroids) it was discussed with neurology and the patient who agreed that transfer to tertiary care center was likely best for continued management of this acute exacerbation of MS which was not resolved by high dose steroids. Minutes to complete discharge: 35 Discharge Summary Reason For Visit: EXCERBATION OF MULTIPLE SCLEROSIS Current Active Problems Elevated blood pressure reading (Acute) Exacerbation of multiple sclerosis (Acute) Optic neuritis due to multiple sclerosis (Acute) Orthostasis (Acute) Condition: Stable - Instructions Diet, Activity, Other Instructions: You were admitted for an exacerbation of your MS. You received 5 days of high dose steroids and were seen by your neurologist Dr. Velasco. At the end of your 5 days of treatment, you felt that your symptoms had not adequately improved. Dr. Velasco discussed the options and it was decided that you should be transferred to [facility] for further treatment. All management should be continued. You should follow up with your neurologist and primary doctor within 1 week following discharge from [facility]. Referrals: Deangelo Velasco MD [Staff Physician] - Disposition: TRANSFER ACUTE CARE/OTHER HOSP - Home Medications Comprehensive Discharge Medication List: Ambulatory Orders Acetaminophen [Tylenol .Regular Strength -] 650 mg PO Q6H PRN tablet 08/17/18 Duloxetine HCl [Cymbalta -] 20 mg PO DAILY capsule. 08/17/18 Pantoprazole Sodium [Protonix -] 40 mg PO DAILY tablet.ec 08/17/18 Polyethylene Glycol 3350 [Miralax 119 gm Btl -] 17 gm PO DAILY bottle 08/17/18 This patient is new to me today: No Emergency Visit: Yes ED Registration Date: 08/13/18 Care time: The patient presented to the Emergency Department on the above date and was hospitalized for further evaluation of their emergent condition. Critical Care patient: No - Discharge Referral Referred to [facility] No
[2018-08-17] MEDS ORDERED: oxyCODONE HCL 5 MG TABLET PO ONE (21:06)
[2018-08-18] MEDS: methylPREDNISolone NA SUCC 125 MG/2 ML VIAL IVPB SCH ×2 (02:53→08:45)
[2018-08-18] MEDS: INSULIN SLIDING SCALE (NOVOLOG) 1 VIAL SQ SCH (06:04)
[2018-08-18] MEDS: HEPARIN NA (PORCINE) 5,000 UNITS/ML 1ML VIAL SQ SCH ×3 (06:04→21:23)
[2018-08-18] MEDS: ACETAMINOPHEN 325 MG TABLET (FP) PO PRN (08:46)
--- NOTE | 2018-08-18 10:24 | PN ---
Progress Note (short form) - Note Progress Note: Neurology HISTORY OF PRESENT ILLNESS: The patient is a 33 yo f w/ PMH MS who comes into the ED c/o a 2 week hx of blurred vision, headaches and LLE weakness. The patient sought medical attention at [facility] and was admitted there for treatment of these complaints. She was treated with 1g of IV solumedrol for three days and discharged home with a large amount of PO steroids and instructed to follow up. The patient's symptoms had not resolved on discharge and therefore saw me in the office on and referred her for admission upon hearing that her symptoms persisted. Imaging was not done at [facility]. Patient also complains of headaches 2/2 to the blurred vision as well as LLE weakness along with radicular pain. Patient denied loss of sensation or paralysis. Patient denies slurred speech or facial droop. Completed MRI brain with hypertense L pontine lesion. Supratentorial white matter plaques as well. On C Spine MRI, C4 plaque as well as smaller C5, C6, C7 plauques noted. T spine MRI completed and with T9 and T10 lesions/ plaques noted. MRI L spine reviewed and without plaques. SHe does not feel she has improved despite 5 days course of steroids completed tonight. Reached out to [facility] transfer specialist to facilitate transfer to [facility] for advanced care. Multiple conversations with transfer center yesterday, patient accepted by Dr. Higuera, but also spoke to Dr. Murphy, MS specialist, who will be consulting and managing patient. Possibly for PLEX but will defer to their expertisse. Discussed with patient, awaiting bed. Allergies No Known Allergies Allergy (Verified 08/12/18 19:07) Active Medications Generic Name Dose Route Start Last Admin Trade Name Freq PRN Reason Stop Dose Admin Acetaminophen 650 mg 08/12/18 23:49 08/18/18 08:46 Tylenol - PO 650 mg Q6H PRN Administration PAIN LEVEL 1-5 Acetaminophen/Butalbital/Caffeine 1 tablet 08/13/18 09:27 08/17/18 05:34 Fioricet - PO 1 tablet DAILY PRN Administration HEADACHE Duloxetine HCl 20 mg 08/13/18 10:00 08/17/18 09:27 Cymbalta - PO 20 mg DAILY [facility] Administration Heparin Sodium (Porcine) 5,000 unit 08/13/18 22:00 08/18/18 06:04 Heparin - SQ Not Given TID [facility] Insulin Aspart 1 vial 08/13/18 11:00 08/18/18 06:04 Novolog Vial Sliding Scale - SQ Not Given ACHS [facility] Protocol Methylprednisolone Sodium Succinate 250 mg 08/13/18 21:00 08/18/18 02:53 Solu-Medrol - IVPB 250 mg Q6H-IV [facility] Administration Ondansetron HCl 4 mg 08/14/18 19:47 08/16/18 17:28 Zofran Injection IVPUSH 4 mg Q8H PRN Administration NAUSEA Pantoprazole Sodium 40 mg 08/14/18 10:00 08/17/18 09:25 Protonix - PO 40 mg DAILY [facility] Administration Polyethylene Glycol 17 gm 08/16/18 14:15 08/17/18 09:27 Miralax (For Daily Use) - PO 17 gm DAILY [facility] Administration PHYSICAL EXAMINATION Vital Signs Period Temp Pulse Resp BP Sys/Salazar Pulse Ox Last 24 Hr 97.8 F-99 F 77-125 20-20 125-163/69-102 GENERAL: Awake, alert, and fully oriented, in no acute distress. HEAD: Normal with no signs of trauma. EYES: Pupils equal, round. Left pupil sluggish in response to light. Right pupil with brisk response to light. Consensual pupillary reaction intact. extraocular movements intact. Patient endorses left eye pain upon asked to look up and to the right. sclera anicteric, conjunctiva clear. No lid lag. LUNGS: Breath sounds equal, clear to auscultation bilaterally. No wheezes, and no crackles. No accessory muscle use. HEART: Regular rate and rhythm, normal S1 and S2 without murmur, rub or gallop. ABDOMEN: Soft, nontender, not distended, normoactive bowel sounds, no guarding, no rebound, no masses. No hepatomegaly or splenomegaly. LOWER EXTREMITIES: 2+ pulses, warm, well-perfused. No calf tenderness. No peripheral edema. NEUROLOGICAL: Cranial nerves II-X intact except for eyes noted above. Normal speech. Strength 5/5 in both upper extremities, 5/5 in the right lower extremity , 5-/5 in left lower extremity. SKIN: Warm, dry, normal turgor, no rashes or lesions noted, normal capillary refill. CBCD WBC 13.6 K/mm3 (4.0-10.0) H 08/14/18 06:35 RBC 4.20 M/mm3 (3.60-5.2) 08/14/18 06:35 Hgb 13.2 GM/dL (10.7-15.3) 08/14/18 06:35 Hct 38.6 % (32.4-45.2) 08/14/18 06:35 MCV 91.8 fl (80-96) 08/14/18 06:35 MCHC 34.2 g/dl (32.0-36.0) 08/14/18 06:35 RDW 12.4 % (11.6-15.6) 08/14/18 06:35 Plt Count 261 K/MM3 (134-434) D 08/14/18 06:35 MPV 9.6 fl (7.5-11.1) 08/14/18 06:35 CMP Sodium 135 mmol/L (136-145) L 08/14/18 06:35 Potassium 4.3 mmol/L (3.5-5.1) 08/14/18 06:35 Chloride 100 mmol/L (98-107) 08/14/18 06:35 Carbon Dioxide 28 mmol/L (21-32) 08/14/18 06:35 Anion Gap 7 MMOL/L (8-16) L 08/14/18 06:35 BUN 18 mg/dL (7-18) 08/14/18 06:35 Creatinine 0.8 mg/dL (0.55-1.3) 08/14/18 06:35 Creat Clearance w eGFR > 60 (>60) 08/14/18 06:35 Calcium 8.3 mg/dL (8.5-10.1) L 08/14/18 06:35 Total Bilirubin 0.4 mg/dL (0.2-1) 08/12/18 18:40 AST 41 U/L (15-37) H 08/12/18 18:40 ALT 33 U/L (13-61) 08/12/18 18:40 Alkaline Phosphatase 49 U/L (45-117) 08/12/18 18:40 Total Protein 7.5 g/dl (6.4-8.2) 08/12/18 18:40 Albumin 3.5 g/dl (3.4-5.0) 08/12/18 18:40 MRI Brain reviewed MRI C spine reviewed MRI T spine reviewed MRI L spine reviewed ASSESSMENT/PLAN: 33 yo f w/ PMH MS who comes into the ED c/o a 2 week hx of blurred vision, headaches and LLE weakness. The patient sought medical attention at [facility] and was admitted there for treatment of these complaints. She was treated with 1g of IV solumedrol for three days and discharged home with a large amount of PO steroids and instructed to follow up. The patient's symptoms had not resolved on discharge and therefore saw me in the office on 08/13 and referred her for admission upon hearing that her symptoms persisted. Imaging was not done at [facility]. Patient also complains of headaches 2/2 to the blurred vision as well as LLE weakness along with radicular pain. Patient denied loss of sensation or paralysis. Patient denies slurred speech or facial droop. Completed MRI brain with hypertense L pontine lesion. Supratentorial white matter plaques as well. On C Spine MRI, C4 plaque as well as smaller C5, C6, C7 plauques noted. T spine MRI completed and with T9 and T10 lesions/plaques noted. MRI L spine reviewed and without plaques. SHe does not feel she has improved despite 5 days course of steroids to be completed tonight. Reached out to [facility] transfer specialist to facilitate transfer to [facility] for advanced care. Patient provided multiple options but prefers transfer. Discussed with nurse and hospitalist, both aware. Remains on duloxetine 20mg for symptoms of lumbar radiculopathy for now. Fioricet for tension headaches. Steroids completed , plan for transfer.
[2018-08-18] MEDS ORDERED: PT OWN MED DRAWER 7, Y5N ONE (10:54)
[2018-08-18] MEDS: PANTOPRAZOLE 40 MG TABLET (FP) PO SCH (10:55)
[2018-08-18] MEDS: DULoxetine HCL 20 MG CAPSULE.DR (FP) PO SCH (10:56)
[2018-08-18] MEDS: POLYETHYLENE GLYCOL 3350 119 GM BTL PO SCH (13:19)
--- NOTE | 2018-08-18 13:47 | PN ---
Teaching Attending Note Name of Resident: Nolberto Diaz ATTENDING PHYSICIAN STATEMENT I saw and evaluated the patient. I reviewed the resident's note and discussed the case with the resident. I agree with the resident's findings and plan as documented. SUBJECTIVE: Patient continues to complain of weakness and pain in both legs. OBJECTIVE: Vital Signs Period Temp Pulse Resp BP Sys/Salazar Pulse Ox Last 24 Hr 97.8 F-99 F 77-125 20-20 125-163/69-102 HEART: S1S2, RRR LUNGS: Clear ABDOMEN: Soft, non-tender, non-distended, normal BS EXTREMITIES: No edema NEUROLOGICAL: Alert, oriented, left pupil sluggish, visual curry intact, strength intact, sensation intact Laboratory Results - last 24 hr 08/17/18 08/18/18 08/18/18 21:32 06:01 12:01 POC Glucometer 120 121 140 Current Medications Generic Name Dose Route Start Last Admin Trade Name Freq PRN Reason Stop Dose Admin Acetaminophen 650 mg 08/12/18 23:49 08/18/18 08:46 Tylenol - PO 650 mg Q6H PRN Administration PAIN LEVEL 1-5 Duloxetine HCl 20 mg 08/13/18 10:00 08/18/18 10:56 Cymbalta - PO 20 mg DAILY [facility] Administration Heparin Sodium (Porcine) 5,000 unit 08/13/18 22:00 08/18/18 06:04 Heparin - SQ Not Given TID [facility] Ondansetron HCl 4 mg 08/14/18 19:47 08/16/18 17:28 Zofran Injection IVPUSH 4 mg Q8H PRN Administration NAUSEA Oxycodone HCl 5 mg 08/18/18 11:07 Roxicodone - PO Q6H PRN PAIN LEVEL 6-10 Pantoprazole Sodium 40 mg 08/14/18 10:00 08/18/18 10:55 Protonix - PO 40 mg DAILY [facility] Administration Polyethylene Glycol 17 gm 08/16/18 14:15 08/18/18 13:19 Miralax (For Daily Use) - PO Not Given DAILY [facility] ASSESSMENT AND PLAN: This is a 33 year old woman with a history of MS who presented to the ED with blurred vision, headaches, and left leg pain and weakness. 1. Acute exacerbation of multiple sclerosis with optic neuritis and LLE pain/ weakness - Completed course of SoluMedrol with no improvement - Accepted for transfer to [place] - awaiting bed 2. Tension headache - Continue Cymbalta 3. Leukocytosis - Steroid-induced 4. Orthostasis - Echo shows normal LV, LVEF 65%, normal RV, trace TR
--- NOTE | 2018-08-18 14:04 | PN ---
Progress Note, Physician History of Present Illness: Awaiting transfer to [facility] for MS treatment, reports episodes of positional dizziness. - Current Medication List Current Medications: Active Medications Acetaminophen (Tylenol -) 650 mg PO Q6H PRN PRN Reason: PAIN LEVEL 1-5 Last Admin: 08/18/18 08:46 Dose: 650 mg Duloxetine HCl (Cymbalta -) [address] [facility] Last Admin: 08/18/18 10:56 Dose: 20 mg Heparin Sodium (Porcine) (Heparin -) 5,[address] [facility] Last Admin: 08/18/18 06:04 Dose: Not Given Ondansetron HCl (Zofran Injection) 4 mg IVPUSH Q8H PRN PRN Reason: NAUSEA Last Admin: 08/16/18 17:28 Dose: 4 mg Oxycodone HCl (Roxicodone -) 5 mg PO Q6H PRN PRN Reason: PAIN LEVEL 6-10 Pantoprazole Sodium (Protonix -) [address] [facility] Last Admin: 08/18/18 10:55 Dose: 40 mg Polyethylene Glycol (Miralax (For Daily Use) -) [address] [facility] Last Admin: 08/18/18 13:19 Dose: Not Given - Objective Vital Signs: Vital Signs Temperature 98.3 F 08/18/18 09:57 Pulse Rate 77 08/18/18 09:57 Respiratory Rate 20 08/18/18 09:57 Blood Pressure 153/87 08/18/18 09:57 O2 Sat by Pulse Oximetry (%) 97 08/16/18 10:00 Constitutional: Yes: No Distress, Calm Neck: Yes: Supple Cardiovascular: Yes: Regular Rate and Rhythm Respiratory: Yes: Regular, CTA Bilaterally Gastrointestinal: Yes: Normal Bowel Sounds, Soft Edema: No Labs: CBC, BMP 08/14/18 06:35 08/14/18 06:35 INR, PTT INR 0.98 (0.83-1.09) 08/13/18 05:20 Problem List - Problems (1) Labile hypertension Code(s): R09.89 - OTH SYMPTOMS AND SIGNS INVOLVING THE CIRC AND RESP SYSTEMS (2) Exacerbation of multiple sclerosis Code(s): G35 - MULTIPLE SCLEROSIS (3) Optic neuritis due to multiple sclerosis Code(s): H46.9 - UNSPECIFIED OPTIC NEURITIS; G35 - MULTIPLE SCLEROSIS (4) Orthostasis Code(s): I95.1 - ORTHOSTATIC HYPOTENSION Assessment/Plan 08/17/2018 Echo: Normal RV and LV size and fxn without sig valve abnl 1. Labile blood pressure with periods of HTN and with orthostasis 2. Acute MS with optic neuritis and both upper and lower extremity weakness 3. Elevated WBC PLAN: 1. Avoid excessive fluid boluses 2. Monitor for orthostasis. If BP remains elevated, may use small dose of calcium channel yola with caution 3. Reviewed Echocardiography to assess LV/RV and valvular function with patient 4. Plan to transfer to [facility] as per Dr. Velasco
[2018-08-18] MEDS: oxyCODONE HCL 5 MG TABLET PO PRN (16:37)
[2018-08-18] MEDS ORDERED: MINERAL OIL ENEMA 133 ML ENEMA PR ONE (17:00)
--- NOTE | 2018-08-18 17:28 | PN ---
Physical Exam: SUBJECTIVE: Patient seen and examined this AM. She states she is having some constipation and would like an enema as she does not want the miralax. States that the fioricet is not helping her eye pain however the one time doses of oxycodone have provided relief. OBJECTIVE: Vital Signs Period Temp Pulse Resp BP Sys/Salazar Pulse Ox Last 24 Hr 97.8 F-98.4 F 74-83 18-20 143-163/87-102 97 GENERAL: A&O, no acute distress EYES: No visual field loss, though blurred vision in the left eye. Left pupillary afferent defect EARS, NOSE, THROAT: oropharynx clear without exudates. Moist mucous membranes. LUNGS: CTA b/l, no crackles or wheezes HEART: Regular rate and rhythm, normal S1 and S2 without murmur ABDOMEN: Soft, nontender to palpation, normoactive bowel sounds EXTREMITIES: warm, well-perfused. No peripheral edema. NEUROLOGICAL: Cranial nerves II-XII intact. Normal speech. 5/5 strength now in LLE, though pt endorses weakness PSYCHIATRIC: Cooperative. Good eye contact. Appropriate mood and affect. Laboratory Results - last 24 hr 08/17/18 08/18/18 08/18/18 21:32 06:01 12:01 POC Glucometer 120 121 140 Active Medications Generic Name Dose Route Start Last Admin Trade Name Freq PRN Reason Stop Dose Admin Acetaminophen 650 mg 08/12/18 23:49 08/18/18 08:46 Tylenol - PO 650 mg Q6H PRN Administration PAIN LEVEL 1-5 Duloxetine HCl 20 mg 08/13/18 10:00 08/18/18 10:56 Cymbalta - PO 20 mg DAILY [facility] Administration Heparin Sodium (Porcine) 5,000 unit 08/13/18 22:00 08/18/18 16:13 Heparin - SQ Not Given TID [facility] Ondansetron HCl 4 mg 08/14/18 19:47 08/16/18 17:28 Zofran Injection IVPUSH 4 mg Q8H PRN Administration NAUSEA Oxycodone HCl 5 mg 08/18/18 11:07 08/18/18 16:37 Roxicodone - PO 5 mg Q6H PRN Administration PAIN LEVEL 6-10 Pantoprazole Sodium 40 mg 08/14/18 10:00 08/18/18 10:55 Protonix - PO 40 mg DAILY [facility] Administration Polyethylene Glycol 17 gm 08/16/18 14:15 08/18/18 13:19 Miralax (For Daily Use) - PO Not Given DAILY [facility] ASSESSMENT/PLAN: 33 yo f w/ PMH MS who comes into the ED c/o a 2 week hx of blurred vision, headaches and LLE weakness. Acute Exacerbation of Multiple Sclerosis with Optic Neuritis -Neurology consult appreciated and case discussed -Received 5 days of high dose Solumedrol without much improvement -oxycodone 5 mg PO Q6 for 7-10 pain -Options discussed with pt as per neurology, at this time likely best to transfer to [facility] for further management. -Transfer pending bed availability Back and left leg pain -MRI lumbar spine without concerning compression -Cymbalta 20 mg PO Daily, can increase to 30 as per neurology if ineffective DVT Prophylaxis -Lovenox 40 mg SQ Daily FEN -Fluids: none -Electrolytes: No electrolyte abnormalities, BMP in AM -Nutrition: Regular Diet Disposition Med/Surg Visit type - Emergency Visit Emergency Visit: Yes ED Registration Date: 08/13/18 Care time: The patient presented to the Emergency Department on the above date and was hospitalized for further evaluation of their emergent condition. - New Patient This patient is new to me today: No - Critical Care Critical Care patient: No
[2018-08-18] MEDS ORDERED: ACETAMINOPHEN/CAFFEINE/BUTALBITAL 1 TAB PO ONE (19:29)
[2018-08-19] MEDS: oxyCODONE HCL 5 MG TABLET PO PRN ×2 (04:45→18:06)
[2018-08-19] MEDS: HEPARIN NA (PORCINE) 5,000 UNITS/ML 1ML VIAL SQ SCH ×2 (05:34→14:43)
--- NOTE | 2018-08-19 09:21 | PN ---
Progress Note (short form) - Note Progress Note: Neurology HISTORY OF PRESENT ILLNESS: The patient is a 33 yo f w/ PMH MS who comes into the ED c/o a 2 week hx of blurred vision, headaches and LLE weakness. The patient sought medical attention at [place] and was admitted there for treatment of these complaints. She was treated with 1g of IV solumedrol for three days and discharged home with a large amount of PO steroids and instructed to follow up. The patient's symptoms had not resolved on discharge and therefore saw me in the office on and referred her for admission upon hearing that her symptoms persisted. Imaging was not done at [facility]. Patient also complains of headaches 2/2 to the blurred vision as well as LLE weakness along with radicular pain. Patient denied loss of sensation or paralysis. Patient denies slurred speech or facial droop. Completed MRI brain with hypertense L pontine lesion. Supratentorial white matter plaques as well. On C Spine MRI, C4 plaque as well as smaller C5, C6, C7 plauques noted. T spine MRI completed and with T9 and T10 lesions/ plaques noted. MRI L spine reviewed and without plaques. SHe does not feel she has improved despite 5 days course of steroids completed tonight. Reached out to [facility] staff development coordinator rn to facilitate transfer to [facility] for advanced care. Multiple conversations with transfer center on 08/17, patient accepted by Dr. Higuera, but also spoke to Dr. Murphy, MS specialist, who will be consulting and managing patient. Possibly for PLEX but will defer to their expertise. Discussed with patient, still awaiting bed. Reached out this AM and limited bed availability but patient is on expedited list. Patient aware and understands situation. Is willing to wait for bed and looks forward to treatment. Steroids d /kevin yesterday. Cymbalta 20mg has not been effective, will increase to twice daily. Allergies No Known Allergies Allergy (Verified 08/12/18 19:07) Active Medications Acetaminophen (Tylenol -) 650 mg PO Q6H PRN PRN Reason: PAIN LEVEL 1-5 Last Admin: 08/18/18 08:46 Dose: 650 mg Duloxetine HCl (Cymbalta -) 20 mg PO DAILY [facility], [facility] Last Admin: 08/18/18 10:56 Dose: 20 mg Heparin Sodium (Porcine) (Heparin -) 5,000 unit SQ TID [facility], [facility]1983 Last Admin: 08/19/18 05:34 Dose: Not Given Ondansetron HCl (Zofran Injection) 4 mg IVPUSH Q8H PRN PRN Reason: NAUSEA Last Admin: 08/16/18 17:28 Dose: 4 mg Oxycodone HCl (Roxicodone -) 5 mg PO Q6H PRN PRN Reason: PAIN LEVEL 6-10 Last Admin: 08/19/18 04:45 Dose: 5 mg Pantoprazole Sodium (Protonix -) 40 mg PO DAILY [facility] Last Admin: 08/18/18 10:55 Dose: 40 mg Polyethylene Glycol (Miralax (For Daily Use) -) 17 gm PO DAILY [facility] Last Admin: 08/18/18 13:19 Dose: Not Given PHYSICAL EXAMINATION Vital Signs Temperature 97.8 F 08/19/18 07:00 Pulse Rate 71 08/19/18 07:00 Respiratory Rate 18 08/19/18 07:00 Blood Pressure 153/91 08/19/18 07:00 O2 Sat by Pulse Oximetry (%) 97 08/18/18 21:00 GENERAL: Awake, alert, and fully oriented, in no acute distress. HEAD: Normal with no signs of trauma. EYES: Pupils equal, round. Left pupil sluggish in response to light. Right pupil with brisk response to light. Consensual pupillary reaction intact. extraocular movements intact. Patient endorses left eye pain upon asked to look up and to the right. sclera anicteric, conjunctiva clear. No lid lag. LUNGS: Breath sounds equal, clear to auscultation bilaterally. No wheezes, and no crackles. No accessory muscle use. HEART: Regular rate and rhythm, normal S1 and S2 without murmur, rub or gallop. ABDOMEN: Soft, nontender, not distended, normoactive bowel sounds, no guarding, no rebound, no masses. No hepatomegaly or splenomegaly. LOWER EXTREMITIES: 2+ pulses, warm, well-perfused. No calf tenderness. No peripheral edema. NEUROLOGICAL: Cranial nerves II-X intact except for eyes noted above. Normal speech. Strength 5/5 in both upper extremities, 5/5 in the right lower extremity , 5-/5 in left lower extremity. SKIN: Warm, dry, normal turgor, no rashes or lesions noted, normal capillary refill. CBCD CBCD WBC 13.6 K/mm3 (4.0-10.0) H 08/14/18 06:35 RBC 4.20 M/mm3 (3.60-5.2) 08/14/18 06:35 Hgb 13.2 GM/dL (10.7-15.3) 08/14/18 06:35 Hct 38.6 % (32.4-45.2) 08/14/18 06:35 MCV 91.8 fl (80-96) 08/14/18 06:35 MCHC 34.2 g/dl (32.0-36.0) 08/14/18 06:35 RDW 12.4 % (11.6-15.6) 08/14/18 06:35 Plt Count 261 K/MM3 (134-434) D 08/14/18 06:35 MPV 9.6 fl (7.5-11.1) 08/14/18 06:35 CMP Sodium 135 mmol/L (136-145) L 08/14/18 06:35 Potassium 4.3 mmol/L (3.5-5.1) 08/14/18 06:35 Chloride 100 mmol/L (98-107) 08/14/18 06:35 Carbon Dioxide 28 mmol/L (21-32) 08/14/18 06:35 Anion Gap 7 MMOL/L (8-16) L 08/14/18 06:35 BUN 18 mg/dL (7-18) 08/14/18 06:35 Creatinine 0.8 mg/dL (0.55-1.3) 08/14/18 06:35 Creat Clearance w eGFR > 60 (>60) 08/14/18 06:35 Calcium 8.3 mg/dL (8.5-10.1) L 08/14/18 06:35 Total Bilirubin 0.4 mg/dL (0.2-1) 08/12/18 18:40 AST 41 U/L (15-37) H 08/12/18 18:40 ALT 33 U/L (13-61) 08/12/18 18:40 Alkaline Phosphatase 49 U/L (45-117) 08/12/18 18:40 Total Protein 7.5 g/dl (6.4-8.2) 08/12/18 18:40 Albumin 3.5 g/dl (3.4-5.0) 08/12/18 18:40 MRI Brain reviewed MRI C spine reviewed MRI T spine reviewed MRI L spine reviewed ASSESSMENT/PLAN: 33 yo f w/ PMH MS who comes into the ED c/o a 2 week hx of blurred vision, headaches and LLE weakness. The patient sought medical attention at [place] and was admitted there for treatment of these complaints. She was treated with 1g of IV solumedrol for three days and discharged home with a large amount of PO steroids and instructed to follow up. The patient's symptoms had not resolved on discharge and therefore saw me in the office on 08/13 and referred her for admission upon hearing that her symptoms persisted. Imaging was not done at [place]. Patient also complains of headaches 2/2 to the blurred vision as well as LLE weakness along with radicular pain. Patient denied loss of sensation or paralysis. Patient denies slurred speech or facial droop. Completed MRI brain with hypertense L pontine lesion. Supratentorial white matter plaques as well. On C Spine MRI, C4 plaque as well as smaller C5, C6, C7 plauques noted. T spine MRI completed and with T9 and T10 lesions/plaques noted. MRI L spine reviewed and without plaques. SHe does not feel she has improved despite 5 days course of steroids to be completed tonight. Reached out to [facility] staff development coordinator rn to facilitate transfer to [facility] for advanced care. Patient provided multiple options but prefers transfer. Discussed with nurse and hospitalist, both aware. Will increase duloxetine 20mg to twice daily for symptoms of lumbar radiculopathy for now. Fioricet for tension headaches. Steroids discontinued, plan for transfer, awaiting bed at [facility].
[2018-08-19] MEDS ORDERED: PT OWN MED DRAWER 7, Y5N ONE (09:50)
[2018-08-19] MEDS ORDERED: DULoxetine HCL 20 MG CAPSULE.DR (FP) PO SCH (10:00)
[2018-08-19] MEDS: PANTOPRAZOLE 40 MG TABLET (FP) PO SCH (10:02)
[2018-08-19] MEDS: POLYETHYLENE GLYCOL 3350 119 GM BTL PO SCH (10:03)
[2018-08-19] MEDS ORDERED: MINERAL OIL ENEMA 133 ML ENEMA PR ONE (13:30)
--- NOTE | 2018-08-19 13:40 | PN ---
Teaching Attending Note Name of Resident: Nolberto Diaz ATTENDING PHYSICIAN STATEMENT I saw and evaluated the patient. I reviewed the resident's note and discussed the case with the resident. I agree with the resident's findings and plan as documented. SUBJECTIVE: Patient continues to have pain and weakness in both legs, pain in her left eye OBJECTIVE: Vital Signs Period Temp Pulse Resp BP Sys/Salazar Pulse Ox Last 24 Hr 97.8 F-98.7 F 71-89 18-20 135-182/85-106 97 HEART: S1S2, RRR LUNGS: Clear ABDOMEN: Soft, non-tender, non-distended, normal BS EXTREMITIES: No edema NEUROLOGICAL: Alert, oriented, left pupil sluggish, visual curry intact, strength intact, sensation intact Laboratory Results - last 24 hr 08/18/18 08/19/18 17:32 12:23 POC Glucometer 126 89 Current Medications Generic Name Dose Route Start Last Admin Trade Name Freq PRN Reason Stop Dose Admin Acetaminophen 650 mg 08/12/18 23:49 08/18/18 08:46 Tylenol - PO 650 mg Q6H PRN Administration PAIN LEVEL 1-5 Duloxetine HCl 20 mg 08/19/18 10:00 08/19/18 10:02 Cymbalta - PO 20 mg BID CAMI Administration Heparin Sodium (Porcine) 5,000 unit 08/13/18 22:00 08/19/18 05:34 Heparin - SQ Not Given TID CAMI Ondansetron HCl 4 mg 08/14/18 19:47 08/16/18 17:28 Zofran Injection IVPUSH 4 mg Q8H PRN Administration NAUSEA Oxycodone HCl 5 mg 08/18/18 11:07 08/19/18 04:45 Roxicodone - PO 5 mg Q6H PRN Administration PAIN LEVEL 6-10 Pantoprazole Sodium 40 mg 08/14/18 10:00 08/19/18 10:02 Protonix - PO 40 mg DAILY CAMI Administration Polyethylene Glycol 17 gm 08/16/18 14:15 08/19/18 10:03 Miralax (For Daily Use) - PO 17 gm DAILY CAMI Administration ASSESSMENT AND PLAN: This is a 33 year old woman with a history of MS who presented to the ED with blurred vision, headaches, and left leg pain and weakness. 1. Acute exacerbation of multiple sclerosis with optic neuritis and LLE pain/ weakness - Completed course of SoluMedrol with no improvement - Accepted for transfer to [place] - awaiting bed 2. Tension headache - Continue Cymbalta 3. Leukocytosis - Steroid-induced 4. Orthostasis - Echo shows normal LV, LVEF 65%, normal RV, trace TR
--- NOTE | 2018-08-19 14:55 | PN ---
Physical Exam: SUBJECTIVE: Patient seen and examined this AM. She states she is still having some constipation. Also notes new raised and red bumps on her chest which she has never had before. OBJECTIVE: Vital Signs Period Temp Pulse Resp BP Sys/Salazar Pulse Ox Last 24 Hr 97.8 F-98.7 F 71-89 18-20 135-182/84-106 97 GENERAL: A&O, no acute distress EYES: No visual field loss, though blurred vision in the left eye. Left pupillary afferent defect EARS, NOSE, THROAT: oropharynx clear without exudates. Moist mucous membranes. CHEST: numerous small closed comedones on her chest LUNGS: CTA b/l, no crackles or wheezes HEART: Regular rate and rhythm, normal S1 and S2 without murmur ABDOMEN: Soft, nontender to palpation, normoactive bowel sounds EXTREMITIES: warm, well-perfused. No peripheral edema. NEUROLOGICAL: Cranial nerves II-XII intact. Normal speech. 5/5 strength now in LLE, though pt endorses weakness PSYCHIATRIC: Cooperative. Good eye contact. Appropriate mood and affect. Laboratory Results - last 24 hr 08/18/18 08/19/18 17:32 12:23 POC Glucometer 126 89 Active Medications Generic Name Dose Route Start Last Admin Trade Name Freq PRN Reason Stop Dose Admin Acetaminophen 650 mg 08/12/18 23:49 08/18/18 08:46 Tylenol - PO 650 mg Q6H PRN Administration PAIN LEVEL 1-5 Duloxetine HCl 20 mg 08/19/18 10:00 08/19/18 10:02 Cymbalta - PO 20 mg BID CAMI Administration Heparin Sodium (Porcine) 5,000 unit 08/13/18 22:00 08/19/18 14:43 Heparin - SQ Not Given TID CAMI Ondansetron HCl 4 mg 08/14/18 19:47 08/16/18 17:28 Zofran Injection IVPUSH 4 mg Q8H PRN Administration NAUSEA Oxycodone HCl 5 mg 08/18/18 11:07 08/19/18 04:45 Roxicodone - PO 5 mg Q6H PRN Administration PAIN LEVEL 6-10 Pantoprazole Sodium 40 mg 08/14/18 10:00 08/19/18 10:02 Protonix - PO 40 mg DAILY CAMI Administration Polyethylene Glycol 17 gm 08/16/18 14:15 08/19/18 10:03 Miralax (For Daily Use) - PO 17 gm DAILY CAMI Administration ASSESSMENT/PLAN: 33 yo f w/ PMH MS who comes into the ED c/o a 2 week hx of blurred vision, headaches and LLE weakness. Acute Exacerbation of Multiple Sclerosis with Optic Neuritis -Neurology consult appreciated and case discussed -Received 5 days of high dose Solumedrol without much improvement -oxycodone 5 mg PO Q6 for 7-10 pain -Options discussed with pt as per neurology, at this time likely best to transfer to [facility] for further management. -Transfer pending bed availability Likely Acne on her chest -will trial Benzoyl peroxide for now Back and left leg pain -MRI lumbar spine without concerning compression -Cymbalta 20 mg PO Daily, can increase to 30 as per neurology if ineffective DVT Prophylaxis -Lovenox 40 mg SQ Daily FEN -Fluids: none -Electrolytes: No electrolyte abnormalities, BMP in AM -Nutrition: Regular Diet Disposition Med/Surg Visit type - Emergency Visit Emergency Visit: Yes ED Registration Date: 08/13/18 Care time: The patient presented to the Emergency Department on the above date and was hospitalized for further evaluation of their emergent condition. - New Patient This patient is new to me today: No - Critical Care Critical Care patient: No
[2018-08-19] MEDS ORDERED: BENZOYL PEROXIDE 5% 60 GM GEL..GRAM. TP ONE (16:00)
[2018-08-19 18:29] VITALS: BP 123/59; PULSE 84; TEMP 98.3
== END 2018-08-19 18:35 | disposition short-term general hospital (02) | DRG 43 ==
LOC: JER 18:09 → JERBED 19:21 → OBSVTOIN 08-13 06:48 → J5S 08-13 15:53
PROVIDERS: ADMIT Internal Medicine; ATTEND Internal Medicine
DX: G35 Multiple sclerosis (principal); D72.829 Elevated white blood cell count, unspecified; G81.94 Hemiplegia, unspecified affecting left nondominant side; M54.16 Radiculopathy, lumbar region; R09.89 Other specified symptoms and signs involving the circulatory and respiratory systems; I95.1 Orthostatic hypotension; H46.9 Unspecified optic neuritis; G44.209 Tension-type headache, unspecified, not intractable
CPT/HCPCS: 36415; 70553-TC; 72141-TC; 72146-TC; 72148-TC; 80048; 80053; 82962; 83735; 84100; 84703; 85025; 85027; 85610; 85730; 93005; 93010; 93306-TC; 97116-GP; 97162-GP; 99284-25; G0378; J1644; J7030